=== PATIENT | female | born 1985 | race Caucasian/White ===

== ENCOUNTER 2018-07-03 11:01 | Outpatient (REF) | payer MEDICAID, SELFPAY ==
--- NOTE | 2018-07-03 10:45 | PAPFT_PTH ---
PATIENT: Yenny Benitez LOC: [facility] U#:[id number] AGE/SX: 33/F ROOM: RE07/03/[address]: Serena Yen RN : 1985 BED: DIS: 07/03/2018 SPEC #: [id number] RECD: 07/03/18 12:55 STATUS: SARINA RETamiko #: [id number] MISSY: 07/03/18 10:[address]: Serena Yen DEPT: [facility] Cytology RECD BY: Nina Styles Tissues: 1 - CX/ENDOCX FOR PAP SMEARS Procedures: PAP THIN PREP/UVM Screening HPV DNA PROBE Comments: [id number]
[2018-07-03 12:16] LABS: *AMPHETAMINES SCREEN URINE Negative (Negative); *BARBITURATES SCREEN URINE Negative (Negative); *BENZODIAZEPINES SCREEN URINE Negative (Negative); Cannabinoids THC Negative (Negative); Cocaine Screen,Urine Negative (Negative); METHADONE URINE SCREEN Negative (Negative); OPIATES URINE SCREEN Negative (Negative)
[2018-07-03 12:25] LABS: Tricyclic Antidepressants Negative (Negative)
[2018-07-06 14:53] LABS: Chlamydia Result Negative; GC Result Negative; Specimen Description CERVIX
[2018-07-07 15:02] LABS: Buprenorphine Negative; Norbuprenorphine Negative
== END 2018-07-03 11:21 ==
LOC: LBN 11:01
PROVIDERS: Visit Provider Advanced Practice Midwife
DX: Z34.91 Encounter for supervision of normal pregnancy, unspecified, first trimester (principal); Z11.3 Encounter for screening for infections with a predominantly sexual mode of transmission; Z12.4 Encounter for screening for malignant neoplasm of cervix; Z11.51 Encounter for screening for human papillomavirus (HPV)
CPT/HCPCS: 80307; 87491; 87591; 88142; 87086; 87624

== ENCOUNTER 2018-07-30 14:22 | Outpatient (CLI) | payer MEDICAID, SELFPAY ==
[2018-07-30 15:01] LABS: HCT 34.9 % (36.0-46.0); HGB 12.1 g/dL (12.0-15.5); Mean Corp. HGB Concentration 34.7 g/dL (32.0-36.0); Mean Corpuscular Hemoglobin 30.3 pg (27.0-33.0); Mean Corpuscular Volume 87.3 fL (80-95); Mean Platelet Volume 10.2 fL (8.0-11.0); Platelet Count 210 x1000/uL (130-400); White Blood Cell Count 8.41 k/cumm (4.4-10.8)
[2018-07-31 10:35] LABS: HIV-1/2 Ag & Ab Screen Negative (NEGAT); Hepatitis C Ab w Rflx HCV PCR Negative (NEGAT)
[2018-07-31 10:51] LABS: Hepatitis B Surface Ag Negative (NEGAT)
[2018-07-31 13:40] LABS: Syphilis Serology (RPR) Negative (Negative)
[2018-07-31 14:01] LABS: Rubella IgG Ab (UVM) Positive; Varicella IgG Antibody Positive
== END 2018-07-30 14:42 ==
PROVIDERS: PCP Nurse Practitioner; Visit Provider Advanced Practice Midwife
DX: Z34.91 Encounter for supervision of normal pregnancy, unspecified, first trimester (principal); Z11.4 Encounter for screening for human immunodeficiency virus [HIV]; Z11.59 Encounter for screening for other viral diseases; Z01.84 Encounter for antibody response examination
CPT/HCPCS: 36415; 85027; 86787; 86803; 86850; 86900; 86901; 87340; 87389; 86592; 86762

== ENCOUNTER 2018-09-03 01:23 | Outpatient (CLI) | payer MEDICAID, SELFPAY ==
--- NOTE | 2018-09-03 14:39 | DI.US_ITS ---
SYMPTOMS/DIAGNOSIS: ANATOMY SURVEY, Z34.90 OB ULTRASOUND: Many abnormalities cannot be diagnosed. A normal exam does not exclude a congenital anomaly. Radiology No. [id number] LMP: 04/25/18 Exam Date: 09/03/18 [facility] wks days on EDC ([facility]) 01/30/19 Confirmed: HISTORY: ---- PREDICTED GESTATIONAL AGE NUMBER 18+5 weeks with a range of 17+5 weeks to 19+5 weeks. 1 Determined by___1STUS_X__LMP___HISTORY PLACENTA PRESENTATION Grade 0-I Cephalic_X__ Anterior_X__Posterior___ Breech____ Right Left Transverse(head right___ Fundal___Low-lying___Previa___ Transverse(head left___ Varying BIOMETRY AMNIOTIC FLUID BPD: 43 mm 19 weeks Normal HC: mm 19 weeks AC: mm 18+4 weeks FL: mm 18+4 weeks AMNIOTIC FLUID INDEX >26 WK CRL: mm weeks Cisterna Magna: 4 mm CI: 0.79 RUQ: LUQ Cerebellum: 1.8 cm EFW: grams Percentile RLQ: LLQ Total: cms Composite AGE= 18+6 wks EDC by US: 01/29/19 BIOPHYSICAL PROFILE ANATOMY IDENTIFIED SCORE 0/2 Heart: 4-Chamber_X__Rate:BPM 149 LVOT:___X RVOT:___X Amniotic Fluid(>2cms)____ Stomach:___X____ Kidneys:__X Respirations (>30 secs) Bladder:____X____ Post. Fossa:____X Body Flex/Extension 3-vessel cord:__X Ventricles: X Cord insertion:__X___ Lips:_X___ Extremity Flex/Extension Spinal morphology:__X Nose:__X__ Total Score= Palate:__X NS=not seen COMMENTS: OB ultrasound was performed utilizing second trimester protocol. biometry is consistent wit gestational age of 18 weeks 6 days and an EDC of 01/29/19. Placenta is anterior with no evidence of placenta previa. anomaly screen is within normal limits as per the attached checklist. There is visually a normal quantity of amniotic fluid.
== END 2018-09-03 01:43 ==
PROVIDERS: PCP Nurse Practitioner; Visit Provider Advanced Practice Midwife
DX: Z34.92 Encounter for supervision of normal pregnancy, unspecified, second trimester (principal)
CPT/HCPCS: 76805

== ENCOUNTER 2018-10-27 18:28 | Emergency (ER) | payer MEDICAID, SELFPAY ==
[2018-10-27] VITALS (16 sets, daily range): BP systolic 93–104; BP diastolic 60–76; PULSE 97–122; RESP 12–20; TEMP 36.6–36.8; O2SAT 97–99
--- NOTE | 2018-10-27 18:46 | W.ED.GENAD ---
Discharge Plan Disposition Patient Disposition: HOME Condition: Fair Discharge Details Chief Complaint: RespSymp Clinical Impression: Flu-like symptoms Primary Care Provider: Radha Leigh ED Provider: Farida Cespedes Home Meds and New Rx's Prescriptions: Continued Vitamin tablet 1 tab PO DAILY RF: 0 Discharge Instructions Instructions: Influenza (ED) Additional Instructions: Flu was negative here today, your imaging is reassuring. Encourage hydration. Tylenol as needed for discomfort. Keep follow up . If you develop shortness of breath, difficulty breathing, inability to stay hydrated or other new/worsening symptoms please seek care urgently once again. Referrals: Anusha Frias [[facility] NURSE SURVEY AND MAPPING TECHNICIAN] - Radha Leigh [Primary Care Provider] - Medical Decision Making Patient is a 33 year old female, 27 week gestation, , accompanied by fiance, with c/c of URI and SOB. States that symptoms began 4 days ago with SOB. Since onset, she has develops cough, rhinorrhea, sore throat. Denies new abdominal pain or cramping. Endorses green vaginal discharge but denies new sexual partners, reports she was tested for STDs in first trimester. No itching, foul odor. Normal movement. Denies recent travel, no recent abx. No leg pain or edema. No personal or family history of blood clot. Endorsing low bilateral chest wall discomfort, particularly with cough. On exam, she appears nontoxic, she is tachycardic at 122. Lungs are clear. Calves are soft, nontender. As I am concerned for possible PE with initial symptom of SOB. Will consult with [facility] to discuss imaging. Will also give IV hydration, obtain flu swab and baseline labs. Discussed plan with patient who is in agreement. Influenza negative. HR: 157 Labs reviewed, WBC 14.4, Hgb 11.3. Consulted with judicial registrar. We discussed concern for possible PE, reviewed labs, history, presenting illness. She agreed with concern for possible PE and advised CT for PE study. Also advised EKG which has been added on. Discussed CT with patient and her signficant other in depth. We discussed risks/benefits of the study, she voices understanding and wishes to proceed. CT reviewed by radiologist: FINDINGS: No evidence of pulmonary embolism. Normal thoracic ureter without aneurysm or dissection. No airspace consolidation, pleural effusion or pneumothorax. The visualized abdominal structures are unremarkable. No fracture. IMPRESSION: No evidence of pulmonary embolism. Discussed findings with the patient and her fiance. Advised that her symptoms are most consistent with viral illness at this time. Encouraged hydration. Advised she may use Tylenol for discomfort. She has appointment in [address], she will keep this appointment for reevaluation. She was given strict return precautions, all of her questions and concerns were addressed, she is in agreement with this plan. HPI General Mode of arrival: ambulatory. Date/Time Provider Initiated Documentation: 10/27/18 18:40. Limitations to Documentation: no limitations. Information obtained by: patient and family (significant other). History of Present Illness 33 year old F presents to the emergency department with the chief complaint of URI, SOB, described as moderate, Patient started experiencing this day(s) (4) and it has been constant. No relieving factors improve symptom(s), No exacerbating factors reported . Patient notes chest pain (bilateral lower rib pain, worse with cough), cough and shortness of breath; denies fever/chills, headaches, loss of appetite, nausea/vomiting, rash, syncope and weakness. Patient did receive the following treatments prior to arrival, none Related Data Home Medications Medication Instructions Recorded Confirmed 1 tab PO DAILY 06/11/18 10/01/18 vitamin,calcium,wuejibhy-cngx-vtobs acid tablet Allergies Allergy/AdvReac Type Severity Reaction Status Date / Time No Known Allergies Allergy Verified 10/01/18 15:46 Review of Systems Constitutional Reports as per HPI and Denies headache(s) Eyes Reports as per HPI, Denies eye discharge and Denies irritation ENT Denies change in voice, Denies ear discharge, Denies otalgia, Denies headache(s), Reports nasal congestion, Reports nasal discharge, Reports sore throat, Denies throat swelling and Denies tongue swelling Cardiovascular Reports as per HPI, Denies chest pain and Reports dyspnea Respiratory Reports cough, Denies hemoptysis, Reports pain on inspiration, Reports pain with cough, Reports dyspnea, Denies stridor and Denies wheezing Gastrointestinal Reports as per HPI, Denies abdominal pain, Denies change in bowel habits, Denies cramping, Denies nausea and Denies vomiting Genitourinary Reports vaginal discharge (endorses green discharge since onset of illness) and Reports other (27 week gestation) Integumentary/Breasts Reports as per HPI and Denies rash Neurologic Denies headache(s) Allergic/Immunologic Denies throat swelling, Denies tongue swelling and Denies wheezing PFSH Medical History (Acute) Surgical History Previous section (Chronic) Family History Maternal Grandmother Bone cancer Social History household members: significant other and children number of children: 2 current occupational status: employed current occupation: teacher current occupational exposures/hazards: No Smoking/Tobacco Use Status: Never passive smoking exposure: No Female Reproductive History Menstrual control method: none History History 4 Para 2 Hx # Term Pregnancies 2 Multiple births 0 Hx # Pregnancies 0 Ectopic pregnancies 0 AB induced 1 Hx Number of Living Children 2 AB spontaneous 0 Exam Const General: cooperative, healthy appearing, comfortable, no acute distress, well developed and well groomed Nutritional Appearance: average body habitus and well nourished Orientation: alert and awake [facility] Head: normal to inspection, normocephalic and atraumatic Ears: hearing grossly normal bilaterally, external ears normal and TM's normal bilaterally General nose exam: external nose normal and nares normal Face and sinus: normal facial exam, sinuses nontender and face symmetric Mouth: oral mucosae normal, lip normal, tongue normal, oropharynx normal and moist mucous membranes Teeth and gingiva: dentition normal Throat: posterior oropharynx normal, tonsils normal and uvula midline Eyes General: appearance normal, both eyes and all related structures Neck Neck: normal visual inspection, full ROM, no lymphadenopathy and no meningeal signs Resp Effort & Inspection: normal respiratory effort, able to speak in complete sentences and no respiratory distress Auscultation: clear to auscultation bilaterally, no rales, no rhonchi and no wheezes Cardio Rate: regular rate Rhythm: regular rhythm Heart Sounds: S1 normal and S2 normal GI Inspection: other (consistent with gestational age) Skin General skin exam: no rashes or lesions noted Neuro General: alert and awake Cognition: normal cognition Speech: speech normal Gait: normal gait Extrem General: no pedal edema and no calf tenderness Psych Appearance: grossly normal and well kempt Mental Status: mental status grossly normal Speech and Movement: speech and movement normal
[2018-10-27] MEDS: Normal Saline Flush 10 ML SYR IVP (19:15)
[2018-10-27] MEDS: Normal Saline 1,000 ML 1000 ML IV ×2 (19:15→20:50)
--- NOTE | 2018-10-27 19:20 | ED.GENADUL_ITS ---
Discharge Plan Disposition Patient Disposition: HOME Condition: Fair Discharge Details Chief Complaint: RespSymp Clinical Impression: Flu-like symptoms Primary Care Provider: Radha Leigh ED Provider: Farida Cespedes Home Meds and New Rx's Prescriptions: Continued Vitamin tablet 1 tab PO DAILY RF: 0 Discharge Instructions Instructions: Influenza (ED) Additional Instructions: Flu was negative here today, your imaging is reassuring. Encourage hydration. Tylenol as needed for discomfort. Keep follow up . If you develop shortness of breath, difficulty breathing, inability to stay hydrated or other new/worsening symptoms please seek care urgently once again. Referrals: Anusha Frias [[facility] NURSE STONEWORKER] - Radha Leigh [Primary Care Provider] - Medical Decision Making Patient is a 33 year old female, 27 week gestation, , accompanied by fiance, with c/c of URI and SOB. States that symptoms began 4 days ago with SOB. Since onset, she has develops cough, rhinorrhea, sore throat. Denies new abdominal pain or cramping. Endorses green vaginal discharge but denies new sexual par tners, reports she was tested for STDs in first trimester. No itching, foul odor. Normal movement. Denies recent travel, no recent abx. No leg pain or edema. No personal or family history of blood clot. Endorsing low bilateral chest wall discomfort, particularly with cough. On exam, she appears nontoxic, she is tachycardic at 122. Lungs are clear. Calves are soft, nontender. As I am concerned for possible PE with initial symptom of SOB. Will consult with [facility] to discuss imaging. Will also give IV hydration, obtain flu swab and baseline labs. Discussed plan with patient who is in agreement. Influenza negative. HR: 157 Labs reviewed, WBC 14.4, Hgb 11.3. Consulted with plywood stock grader. We discussed concern for possible PE, reviewed labs, history, presenting illness. She agreed with concern for possible PE and advised CT for PE study. Also advised EKG which has been added on. Discussed CT with patient and her signficant other in depth. We discussed risks/benefits of the study, she voices understanding and wishes to proceed. CT reviewed by radiologist: FINDINGS: No evidence of pulmonary embolism. Normal thoracic ureter without aneurysm or dissection. No airspace consolidation, pleural effusion or pneumothorax. The visualized abdominal structures are unremarkable. No fracture. IMPRESSION: No evidence of pulmonary embolism. Discussed findings with the patient and her fiance. Advised that her symptoms are most consistent with viral illness at this time. Encouraged hydration. Advised she may use Tylenol for discomfort. She has appointment in 2 days with [facility], she will keep this appointment for reevaluation. She was given strict return precautions, all of her questions and concerns were addressed, she is in agreement with this plan. HPI General Mode of arrival: ambulatory . Date/Time Provider Initiated Documentation: 10/27/18 18:40 . Limitations to Documentation: no limitations . Information obtained by: patient and family (significant other) . History of Present Illness 33 year old F presents to the emergency department with the chief complaint of URI, SOB, described as moderate, Patient started experiencing this day(s) (4) and it has been constant. No relieving factors improve symptom(s), No exacerbating factors reported . Patient notes chest pain (bilateral lower rib pain, worse with cough), cough and shortness of breath; denies fever/chills, headaches, loss of appetite, nausea/vomiting, rash, syncope and weakness. Patient did receive the following treatments prior to arrival, none Related Data Home Medications Medication Instructions Recorded Confirmed 1 tab PO DAILY 06/11/18 10/01/18 vitamin,calcium,betiodfx-julz-rsnjt acid tablet Allergies Allergy/AdvReac Type Severity Reaction Status Date / Time No Known Allergies Allergy Verified 10/01/18 15:46 Review of Systems Constitutional Reports as per HPI and Denies headache(s) Eyes Reports as per HPI, Denies eye discharge and Denies irritation ENT Denies change in voice, Denies ear discharge, Denies otalgia, Denies headache(s), Reports nasal congestion, Reports nasal discharge, Reports sore throat, Denies throat swelling and Denies tongue swelling Cardiovascular Reports as per HPI, Denies chest pain and Reports dyspnea Respiratory Reports cough, Denies hemoptysis, Reports pain on inspiration, Reports pain with cough, Reports dyspnea, Denies stridor and Denies wheezing Gastrointestinal Reports as per HPI, Denies abdominal pain, Denies change in bowel habits, Denies cramping, Denies nausea and Denies vomiting Genitourinary Reports vaginal discharge (endorses green discharge since onset of illness) and Reports other (27 week gestation) Integumentary/Breasts Reports as per HPI and Denies rash Neurologic Denies headache(s) Allergic/Immunologic Denies throat swelling, Denies tongue swelling and Denies wheezing PFSH Medical History (Acute) Surgical History Previous section (Chronic) Family History Maternal Grandmother Bone cancer Social History household members: significant other and children number of children: 2 current occupational status: employed current occupation: teacher current occupational exposures/hazards: No Smoking/Tobacco Use Status: Never passive smoking exposure: No Female Reproductive History Menstrual control method: none History History 4 Para 2 Hx # Term Pregnancies 2 Multiple births 0 Hx # Pregnancies 0 Ectopic pregnancies 0 AB induced 1 Hx Number of Living Children 2 AB spontaneous 0 Exam Const General: cooperative, healthy appearing, comfortable, no acute distress, well developed and well groomed Nutritional Appearance: average body habitus and well nourished Orientation: alert and awake [facility] Head: normal to inspection, normocephalic and atraumatic Ears: hearing grossly normal bilaterally, external ears normal and TM's normal bilaterally General nose exam: external nose normal and nares normal Face and sinus: normal facial exam, sinuses nontender and face symmetric Mouth: oral mucosae normal, lip normal, tongue normal, oropharynx normal and moist mucous membranes Teeth and gingiva: dentition normal Throat: posterior oropharynx normal, tonsils normal and uvula midline Eyes General: appearance normal, both eyes and all related structures Neck Neck: normal visual inspection, full ROM, no lymphadenopathy and no meningeal signs Resp Effort & Inspection: normal respiratory effort, able to speak in complete sentences and no respiratory distress Auscultation: clear to auscultation bilaterally, no rales, no rhonchi and no wheezes Cardio Rate: regular rate Rhythm: regular rhythm Heart Sounds: S1 normal and S2 normal GI Inspection: other (consistent with gestational age) Skin General skin exam: no rashes or lesions noted Neuro General: alert and awake Cognition: normal cognition Speech: speech normal Gait: normal gait Extrem General: no pedal edema and no calf tenderness Psych Appearance: grossly normal and well kempt Mental Status: mental status grossly normal Speech and Movement: speech and movement normal
[2018-10-27 19:27] LABS: Abs Immature Grans 0.05 k/cumm (0.0-0.09); Absolute Lymphocyte Count 1.59 k/cumm (1.2-3.4); Basophils % 0.1; Eosinophils % 0.8; HCT 33.4 % (36.0-46.0); HGB 11.3 g/dL (12.0-15.5); Immature Grans % 0.3; Mean Corp. HGB Concentration 33.8 g/dL (32.0-36.0); Mean Corpuscular Hemoglobin 31.1 pg (27.0-33.0); Monocytes % 4.8; Platelet Count 229 x1000/uL (130-400); RBC 3.63 m/cumm (4.00-5.20); RBC Distribution Width 12.5 % (11.7-14.6); White Blood Cell Count 14.45 k/cumm (4.4-10.8)
[2018-10-27 19:32] LABS: Absolute Basophil Count 0.01 k/cumm (0.0-0.2); Absolute Eosinophil Count 0.12 k/cumm (0.0-0.7); Absolute Monocyte Count 0.69 k/cumm (0.11-0.7); Absolute Neutrophil Count 11.99 k/cumm (1.2-6.7)
[2018-10-27 19:34] LABS: ALT 16 U/L (12-78); AST 14 U/L (15-37); Albumin 2.6 g/dL (3.4-5.0); Alkaline Phosphatase 95 U/L (46-116); Anion Gap 5.2 mmol/L (3-11); BUN 8 mg/dL (7-18); Bilirubin, Total 0.2 mg/dL (0.2-1.0); CO2 28.8 mmol/L (21.0-32.0); CREATININE 0.65 mg/dL (0.55-1.02); Calcium 8.2 mg/dL (8.5-10.1); Chloride 103 mmol/L (98-107); Glucose 98 mg/dL (70-100); Potassium 3.4 mmol/L (3.5-5.1); Sodium 137 mmol/L (136-145); Total Protein 6.8 g/dL (6.4-8.2)
--- NOTE | 2018-10-27 19:55 | DI.CT_ITS ---
SYMPTOM/DIAGNOSIS: , SOB, TACHYCARDIA PE CHEST CT: CT angiography was performed with multi slice acquisition and multi planar and 3D reconstruction. The examination was carried out according to the usual protocol with an intravenous administration of 61 cc's of Omnipaque 350. There is no evidence of pulmonary embolic disease. The aorta is normal with no evidence of an aneurysm or dissection. The lungs are free of infiltrate. There is no pneumothorax or pleural effusion. The visualized anatomy in the upper abdomen appears unremarkable. IMPRESSION: No evidence of pulmonary embolic disease.
[2018-10-27] MEDS: Omnipaque 350 MG/ML 100 ML BTL IV (20:20)
--- NOTE | 2018-10-27 20:56 | DI.VRAD_ITS ---
EXAM: CT Angiography Chest With Contrast EXAM DATE/TIME: 10/27/2018 7:55 PM CLINICAL HISTORY: 33 years old, female; Signs and symptoms; Other: , SOB and tachycardic; Patient HX: PT is 27 wks TECHNIQUE: Axial computed tomographic angiography images of the chest with intravenous contrast using CT angiography protocol. All CT scans at this facility use at least one of these dose optimization techniques: automated exposure control; mA and/or kV adjustment per patient size (includes targeted exams where dose is matched to clinical indication); or iterative reconstruction. Coronal and sagittal reformatted images were created and reviewed. MIP reconstructed images were created and reviewed. CONTRAST: 61 ml of OMNIPAQUE 350 administered intravenously. COMPARISON: No relevant prior studies available. FINDINGS: No evidence of pulmonary embolism. Normal thoracic ureter without aneurysm or dissection. No airspace consolidation, pleural effusion or pneumothorax. The visualized abdominal structures are unremarkable. No fracture. IMPRESSION: No evidence of pulmonary embolism. Dictated and Authenticated by: Alvaro Denny MD. Ordering:JOSSE Iqbal MD
== END 2018-10-27 21:57 | disposition home or self-care (01) ==
PROVIDERS: Emergency Provider Physician Assistant; PCP Nurse Practitioner
DX: O99.89 Other specified diseases and conditions complicating pregnancy, childbirth and the puerperium (principal); J11.1 Influenza due to unidentified influenza virus with other respiratory manifestations; Z3A.27 27 weeks gestation of pregnancy
CPT/HCPCS: 36415; 71275; 80053; 87449; 93005; 96360; 96361; 99285; 85025; 93010; J3490

== ENCOUNTER 2018-11-12 02:19 | Outpatient (CLI) | payer MEDICAID, SELFPAY ==
[2018-11-12 12:49] LABS: HCT 31.4 % (36.0-46.0); HGB 10.3 g/dL (12.0-15.5); Mean Corp. HGB Concentration 32.8 g/dL (32.0-36.0); Mean Corpuscular Volume 91.5 fL (80-95); Platelet Count 246 x1000/uL (130-400); RBC 3.43 m/cumm (4.00-5.20); RBC Distribution Width 12.2 % (11.7-14.6); White Blood Cell Count 9.02 k/cumm (4.4-10.8)
[2018-11-12 12:52] LABS: Glucose,1 Hr (Glucola) 93 mg/dL (80-140)
[2018-11-12 13:42] LABS: TSH (W/Ref FT4) 1.13 uIU/mL (0.358-3.74)
== END 2018-11-12 02:39 ==
PROVIDERS: Advanced Practice Midwife; PCP Nurse Practitioner; Visit Provider Obstetrics & Gynecology Gynecology
DX: O26.893 Other specified pregnancy related conditions, third trimester (principal); Z34.93 Encounter for supervision of normal pregnancy, unspecified, third trimester; Z67.91 Unspecified blood type, Rh negative; Z01.84 Encounter for antibody response examination
CPT/HCPCS: 36415; 82950; 85027; 86850; 86900; 86901; 90384; 84443

== ENCOUNTER 2018-12-31 14:18 | Outpatient (REF) | payer MEDICAID, SELFPAY | END 2018-12-31 14:38 | LOC: LBN 14:18 | PROVIDERS: PCP Nurse Practitioner; Visit Provider Obstetrics & Gynecology | DX: Z34.93 Encounter for supervision of normal pregnancy, unspecified, third trimester (principal); Z36.85 Encounter for antenatal screening for Streptococcus B | CPT/HCPCS: 87081 ==

== ENCOUNTER 2019-01-02 12:51 | Emergency (ER) | payer MEDICAID, SELFPAY ==
--- NOTE | 2019-01-02 13:01 | NUTRITION ---
pt has been spending time with individuals who had the flu and strep. the morning pt woke up with body akes and a sore throat and came to the Er because she is and concerned about randi influenza or strep while . pt is 36 weeks
[2019-01-02 13:03] VITALS: BP 112/74; PULSE 104; RESP 18; TEMP 37.1; O2SAT 99
--- NOTE | 2019-01-02 14:08 | W.ED.GENAD ---
Discharge Plan Disposition Patient Disposition: HOME Condition: Stable Discharge Details Chief Complaint: Sorethroat Clinical Impression: URI (upper respiratory infection), Viral syndrome Primary Care Provider: Radha Leigh ED Provider: Miriam Cote Home Meds and New Rx's Prescriptions: Continued Vitamin tablet 1 tab PO DAILY RF: 0 ferrous sulfate 134 mg (27 mg iron) tablet 134 mg PO DAILY RF: 0 lidocaine HCl 3 % cream 1 applic TP QID PRN (Reason: pain) Qty: 85 RF: 1 Discharge Instructions Instructions: Upper Respiratory Infection (ED), Viral Syndrome (ED) Additional Instructions: Drink plenty fluids get plenty of rest. Continue to take Tylenol and use your saline nose spray as needed and directed. Follow-up with your [facility] next week for reevaluation. Return immediately to the emergency department any worsening or new concerning symptoms. Discharge Data Discharge Physician: Miriam Cote Medical Decision Making 33-year-old female who is 36 weeks with estimated due date of January 27 who presents with body aches, chills, nasal congestion, postnasal drip and sore throat since yesterday. Patient states she is mainly here to have a rapid strep and influenza test to make sure she does not have the flu or strep as she had positive sick contacts with both recently. Vitals within normal limits. Patient is afebrile and appears nontoxic. Normal ENT exam. Lungs clear to auscultation. Rapid strep and rapid influenza negative. Patient declined any Tylenol here. She feels good to go home. She is instructed to follow-up with OB for reevaluation and return at any time if worse. HPI General Mode of arrival: ambulatory. Date/Time Provider Initiated Documentation: 01/02/19 13:37. Limitations to Documentation: no limitations. Information obtained by: patient. HPI Narrative: Patient is a 33-year-old female who is 36 weeks with an estimated due date of January 27 who presents with body ache and chills with nasal congestion and sore throat since last night. Patient admits to multiple sick contacts with influenza and strep throat recently. She denies any known fever, coughing, vomiting, diarrhea, shortness of breath, chest pain or abdominal pain. She states she is feeling the baby kick and move and denies any vaginal bleeding. She states she took Tylenol at 530 this morning. She does admit to intermittent postnasal drip and minimal headache in the back of her head but denies any neck pain. Related Data Home Medications Medication Instructions Recorded Confirmed 1 tab PO DAILY 06/11/18 01/02/19 vitamin,calcium,jmmgjdfr-stdp-nnwfo acid tablet ferrous sulfate 134 mg (27 mg 134 mg PO DAILY tab 12/17/18 12/31/18 iron) tablet lidocaine HCl 3 % topical cream 1 applic TP QID PRN #85 gm 12/17/18 12/31/18 Previous Rx's Medication Instructions Recorded lidocaine HCl 3 % topical cream 1 applic TP QID PRN #85 gm 12/17/18 Allergies Allergy/AdvReac Type Severity Reaction Status Date / Time No Known Allergies Allergy Verified 01/02/19 13:05 General Stated Complaint: Sorethroat BLAYNE: 4 Review of Systems Review of Systems All systems reviewed & are unremarkable except as noted in HPI and below Constitutional Reports as per HPI, Denies chills and Denies fever(s) Eyes Denies blurry vision ENT Denies dizziness, Denies sore throat and Denies throat swelling Cardiovascular Denies chest pain and Denies dyspnea Respiratory Denies cough and Denies dyspnea Gastrointestinal Denies abdominal pain, Denies diarrhea and Denies vomiting Genitourinary Denies hematuria and Denies dysuria Musculoskeletal Denies back pain and Denies numbness Integumentary/Breasts Denies lesions and Denies rash Neurologic Denies dizziness, Denies focal weakness and Denies numbness Allergic/Immunologic Denies throat swelling [facility] Medical History (Acute) Surgical History Previous section (Chronic) Family History Maternal Grandmother Bone cancer Father Heart disease Social History Smoking/Tobacco Use Status: Never Alcohol Intake: never Drug use: Never Household members: significant other and children Number of Children: 2 current occupation: teacher Do you feel safe at home: Yes Do you feel safe in your relationship?: Yes Additional Social history: Partner - Elliott. 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 Female Reproductive History Menstrual control method: none History History 4 Para 2 Hx # Term Pregnancies 2 Multiple births 0 Hx # Pregnancies 0 Ectopic pregnancies 0 AB induced 1 Hx Number of Living Children 2 AB spontaneous 0 Past Pregnancies Del. Date GA/Weeks # Outcome Route Wgt Sex Labor Lgth Anesthesia Location Prov Complic 05/24/12 40 Successful 3.856 kg Male 18 hrs regional 05/06/13 Unsuccessful 12/28/14 Successful 4.026 kg Male regional Delivery Date: 12/28/14 On 07/30/18 @ 14:13 Anusha Frias [place]: Spontaneous labor and was 6 cm but had planned repeat C/S. Delivery Date: 05/06/13 On 07/30/18 @ 13:42 Anusha Frias early elective TAB, Delivery Date: 05/24/12 On 07/30/18 @ 13:39 Anusha Frias [place]; emergency C/S for distress in 2nd stage Exam Const General: cooperative and healthy appearing Orientation: alert and awake HENNJ Head: normal to inspection Ears: hearing grossly normal bilaterally, external ears normal and TM's normal bilaterally General nose exam: external nose normal Face and sinus: normal facial exam Mouth: oral mucosae normal Teeth and gingiva: dentition normal Throat: posterior oropharynx normal Eyes General: appearance normal, both eyes and all related structures Eyelids: eyelids normal Pupils: PERRL EOM: EOM intact bilaterally Neck Neck: normal visual inspection Lymphatic: no lymphadenopathy noted Chest Chest: normal inspection of the chest Resp Effort & Inspection: normal respiratory effort and able to speak in complete sentences Auscultation: clear to auscultation bilaterally Cardio Rate: regular rate Rhythm: regular rhythm GI Inspection: normal to inspection and other (Gravid uterus) Palpation: soft, not firm, no guarding, no hepatosplenomegaly, no masses and nontender Auscultation: normal bowel sounds Skin General skin exam: no rashes or lesions noted Neuro General: alert and awake Cognition: normal cognition Speech: speech normal Gait: normal gait Motor: muscle tone normal throughout Sensory Exam: no sensory deficits noted Extrem General: normal to inspection, full ROM and normal capillary refill Psych Appearance: grossly normal Mental Status: mental status grossly normal Speech and Movement: speech and movement normal Affect: normal affect Thought Process: normal Course Vital Signs Temperature 98.8 F 01/02/19 13:03 Pulse 104 H 01/02/19 13:03 Respiratory Rate 18 01/02/19 13:03 Blood Pressure 112/74 01/02/19 13:03 Pulse Oximetry 99 01/02/19 13:03 Temperature 98.8 F 01/02/19 13:03 Temperature Source Skin 01/02/19 13:03 Pulse 104 H 01/02/19 13:03 Respiratory Rate 18 01/02/19 13:03 Respiratory Effort 01/02/19 13:05 Blood Pressure 112/74 01/02/19 13:03 Blood Pressure Position Sitting 01/02/19 13:03 Pulse Oximetry 99 01/02/19 13:03 Oxygen Delivery Method Room Air 01/02/19 13:03 Oxygen Flow Rate 0 01/02/19 13:03 Pain Level 0 01/02/19 13:03 Lab/Test Results Lab/Test Results: 01/02/19 13:39 Nasopharynx Influenza Types A,B Antigen - Final 01/02/19 13:31 Tonsil - Not Specified Streptococcus Screen (SALOME) - Pending POC Strep Test-EVELINE(Rapid) Start: 01/02/19 13:41 Freq: Status: Active Protocol: Document 01/02/19 13:41 TB (Rec: 01/02/19 13:41 TB [id number]) Strep test-EVELINE(Rapid)-POC POC-Strep test-EVELINE (Rapid) Negative POC-Strep test-EVELINE (Rapid) Negative
[2019-01-02 15:05] VITALS: BP 112/74; PULSE 90; RESP 16; TEMP 37; O2SAT 99
== END 2019-01-02 15:40 | disposition home or self-care (01) ==
PROVIDERS: Emergency Provider Physician Assistant; PCP Nurse Practitioner
DX: J06.9 Acute upper respiratory infection, unspecified (principal); B34.9 Viral infection, unspecified
CPT/HCPCS: 87449; 87880; 99282; 87081

== ENCOUNTER 2019-01-17 19:15 | Inpatient (IN) | payer MEDICAID, SELFPAY ==
--- NOTE | 2019-01-17 20:03 | HPE_ITS ---
Date of service: 01/17/19 Time of Service: 19:50 Assessment and Plan (1) Previous delivery affecting : Current visit: Yes Status: Acute Patient consents for a repeat unscheduled low transverse delivery. She has been counseled regarding the risk of infection damage to surrounding structures including bowel bladder ureters the possibility of injury to use at the time of delivery. She requests permanent sterilization she is aware that this will render her incapable of having future pregnancies. She has been counseled during her regarding her desire for sterilization and her options for alternatives including LARC. She wishes to proceed. Informed consent was obtained and her questions were answered. (2) Request for sterilization: Current visit: Yes Status: Acute History of Present Illness Chief Complaint: Contractions Past OB history Narrative: Patient is a 33-year-old female with an EDC of 01/30/2019 who began to experience painful regular contractions this evening. No complaints of rupture membranes no vaginal bleeding. On presentation to the center she is 2 cm dilated 50% effaced -1 station with regular contractions mild variable decelerations with a of the heart rate. Patient was scheduled for a repeat delivery with bilateral tubal sterilization in approximately 2 weeks. Plan at this time is to proceed with the urgent delivery this evening. OB History Presented for care in first trimester. She has had a total of 11 visits. Sizeequal to dates. Normal morphology ultrasound. First trimester blood pressure 110/72 third trimester blood pressure 104/70. Total weight gain 22 pounds. Her only issue this was a sensation of pain in her left upper quadrant she described it as a tearing sensation OB labs O-. Antibody negative. Patient received RhoGam during her . Negative STI, HIV, rubella immune, hepatitis B surface antigen negative, GBS rectovaginal culture negative. Review of Systems Constitutional Reports as per HPI Cardiovascular Reports system reviewed and no additional complaints, except as docu Gastrointestinal Reports as per HPI (Patient had strawberries several hours ago) Musculoskeletal Reports system reviewed and no additional complaints, except as docu [facility] Medical History (Acute) Surgical History Previous section (Chronic) Family History Maternal Grandmother Bone cancer Father Heart disease Social History Smoking/Tobacco Use Status: Never Alcohol Intake: never Drug use: Never Household members: significant other and children Number of Children: 2 current occupation: teacher Do you feel safe at home: Yes Do you feel safe in your relationship?: Yes Additional Social history: Partner - Elliott. 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 Female Reproductive History Menstrual control method: none History History 4 Para 2 Hx # Term Pregnancies 2 Multiple births 0 Hx # Pregnancies 0 Ectopic pregnancies 0 AB induced 1 Hx Number of Living Children 2 AB spontaneous 0 Past Pregnancies Del. Date GA/Weeks # Outcome Route Wgt Sex Labor Lgth Anesthesia Location Prov Complic 05/24/12 40 Successful 8 lb 8 oz Male 18 hrs regional 05/06/13 Unsuccessful 12/28/14 Successful 8 lb 14 oz Male regional Delivery Date: 12/28/14 On 07/30/18 @ 14:13 Anusha Frias [place]: Spontaneous labor and was 6 cm but had planned repeat C/S. Delivery Date: 05/06/13 On 07/30/18 @ 13:42 Anusha Frias early elective TAB, Delivery Date: 05/24/12 On 07/30/18 @ 13:39 Anusha Frias [place]; emergency C/S for distress in 2nd stage Meds Home Medications Medication Instructions Recorded Confirmed Type 1 tab PO DAILY 06/11/18 01/11/19 History vitamin,calcium,meyhmrav-foyw-arbet acid tablet ferrous sulfate 134 mg (27 mg 134 mg PO DAILY tab 12/17/18 01/11/19 History iron) tablet lidocaine HCl 3 % topical cream 1 applic TP QID PRN #85 gm 12/17/18 01/11/19 Rx Allergies Allergy/AdvReac Type Severity Reaction Status Date / Time No Known Allergies Allergy Verified 01/11/19 15:31 Exam Const General: cooperative and comfortable Nutritional Appearance: average body habitus Orientation: awake Resp Effort & Inspection: normal respiratory effort Auscultation: clear to auscultation bilaterally Cardio Palpation: normal PMI Rate: regular rate Rhythm: regular rhythm Heart Sounds: S1 normal and S2 normal GI Inspection: normal to inspection (Gravid no focal upper quadrant pain noted.) Palpation: soft and no hepatosplenomegaly (No guarding rebound or masses) External Female Exam: external appearance normal Manual OB Exam: dilated 2, effaced 50% and station -1 Skin General skin exam: no rashes or lesions noted Neuro DTR's: Rt Patellar: 1+, Lt Patellar: 1+, Rt Ankle: 1+ and Lt Ankle: 1+ Extrem General: normal to inspection, full ROM and normal capillary refill Results Labs : 01/17/19 19:43
[2019-01-17 20:23] LABS: HGB 12.1 g/dL (12.0-15.5); Mean Corp. HGB Concentration 33.6 g/dL (32.0-36.0); Mean Corpuscular Hemoglobin 30.6 pg (27.0-33.0); Mean Corpuscular Volume 90.9 fL (80-95); Mean Platelet Volume 10.7 fL (8.0-11.0); Platelet Count 212 x1000/uL (130-400); RBC 3.96 m/cumm (4.00-5.20); RBC Distribution Width 12.4 % (11.7-14.6); White Blood Cell Count 8.67 k/cumm (4.4-10.8)
[2019-01-17] MEDS: Sodium Citrate 30 ML CUP PO (20:32)
[2019-01-17] MEDS: AZITHROMYCIN 500 MG in Normal Saline 250 ML 250 MG IVPB (20:35)
[2019-01-17] MEDS: Lactated Ringers 1,000 ML 200 ML IV (20:35)
[2019-01-17] MEDS: ceFAZolin 2,000 MG in Normal Saline 100 ML 200 MG IVPB (21:06)
--- NOTE | 2019-01-17 21:33 | FALL_PTH ---
PATIENT: Yenny Benitez LOC: OBS U#:[id number] AGE/SX: 33/F ROOM: OBS.305 RE01/17/[address]: Day Aguirre : 1985 BED: A DIS: 01/20/2019 SPEC #: [id number] RECD: 01/18/19 12:38 STATUS: SARINA RETamiko #: [id number] MISSY: 01/17/19 21:[address]: Day Aguirre DEPT: Surgical Specimen RECD BY: Nina Styles ENTERED: 01/18/19 12:38 SP TYPE: Fall OTHR DR: Radha Leigh Tissues: 1 - FALLOPIAN TUBE (STERILIZATION) 2 - FALLOPIAN TUBE (STERILIZATION) Procedures: GROSS AND MICRO LEVEL 2 Comments: [id number]
[2019-01-18] MEDS: Ketorolac 30 MG/ML VIAL IVP ×3 (03:57→16:11)
[2019-01-18] MEDS: Lactated Ringers 1,000 ML 200 ML IV (05:44)
[2019-01-18] MEDS: Acetaminophen 325 MG TAB 650 MG PO ×2 (07:57→12:52)
[2019-01-18 09:44] LABS: HCT 31.1 % (36.0-46.0); HGB 10.1 g/dL (12.0-15.5); Mean Corp. HGB Concentration 32.5 g/dL (32.0-36.0); Mean Corpuscular Volume 92.3 fL (80-95); Platelet Count 172 x1000/uL (130-400); RBC 3.37 m/cumm (4.00-5.20); RBC Distribution Width 12.6 % (11.7-14.6); White Blood Cell Count 12.49 k/cumm (4.4-10.8)
[2019-01-18] MEDS: Lactated Ringers 1,000 ML 125 ML IV (11:00)
[2019-01-18] MEDS: Normal Saline Flush 10 ML SYR IVP ×2 (11:23→16:10)
[2019-01-18] MEDS: oxyCODONE 5 mg/Acetaminophen 325 mg TAB PO ×3 (18:17→22:43)
[2019-01-18] MEDS: Docusate Sodium 100 MG CAP PO (21:10)
[2019-01-18] MEDS: Ibuprofen 600 MG TAB PO (22:03)
[2019-01-19] MEDS: Docusate Sodium 100 MG CAP PO ×2 (02:36→10:40)
[2019-01-19] MEDS: oxyCODONE 5 mg/Acetaminophen 325 mg TAB PO ×5 (02:36→19:54)
[2019-01-19] MEDS: Ibuprofen 600 MG TAB (03:39)
[2019-01-19] MEDS: Ibuprofen 600 MG TAB PO ×2 (12:58→18:36)
[2019-01-20] MEDS: oxyCODONE 5 mg/Acetaminophen 325 mg TAB PO ×4 (00:03→12:30)
[2019-01-20] MEDS: Ibuprofen 600 MG TAB PO ×2 (02:56→11:23)
--- NOTE | 2019-01-20 09:03 | ROE_ITS ---
Date of service: 01/17/19 Time of Service: 20:00 Operative Note DATE OF PROCEDURE: 01/17/19 PRE-OP DIAGNOSIS: Intrauterine at term. Previous delivery PROCEDURE: Nonselective unscheduled repeat delivery with bilateral salpingectomy SURGEON: Day Aguirre EHR TRAINER: Tavo Ramos ANESTHESIA: spinal (Carlito Isidro CRNA) ESTIMATED BLOOD LOSS: 300 PATHOLOGY: other (Left and right fallopian tubes to pathology) COMPLICATIONS: None Patient was transported to: floor (Via gurney) Patient's condition: stable Indications: Patient is a 33-year-old female with an EDC of 01/30/2019 who began to experience painful regular contractions this evening. No complaints of rupture membranes no vaginal bleeding. On presentation to the center she is 2 cm dilated 50% effaced -1 station with regular contractions mild variable decelerations with a of the heart rate. Findings: Viable female in OA position with clear amniotic fluid. Weight 3125 g (8 pounds 14 ounces) Apgars 8 at 1 minute 9 at 5 minutes. Band of adhesions extending from the fundus to the lower uterine segment and onto the cervix. Otherwise normal fallopian tubes ovaries. Palpation of the upper abdomen was normal bladder flap normal Procedure Description: Patient was taken to the operating room where she was placed in the sitting position and spinal anesthesia was administered without difficulty. She was then placed in the dorsal supine position with a leftward tilt. Corey catheter was placed to gravity drainage she had a dose of 2 g of Ancef and a completion of 500 mg of IV erythromycin prior to skin incision. She was prepped and draped in usual sterile fashion. A timeout was performed. After a satisfactory level anesthesia had been obtained a scalpel was used to incise along the previous scar using a scalpel the underlying subcutaneous tissue was dissected using Bovie electrocautery. Upon encountering the rectus fascia the rectus fascia was nicked in the midline with scissors and the incision was extended laterally with curved Borjas scissors and blunt technique. The rectus muscles were in the midline and the peritoneum entered bluntly well above the vesicouterine fold. Bladder blade was placed and the bladder was retracted away from the operative field the vesicouterine fold was tented up and incised and this dissected off of the lower uterine segment using blunt technique. The bladder blade was then reinserted to retract the bladder away from the operative field the scalpel was used to incise the lower uterine segment in a transverse fashion upon entry into the uterus the uterine incision was extended bluntly and the amniotic sac ruptured with clear amniotic fluid returned. A single gloved hand placed into the uterus was used to grasp the head she was not well applied to the lower uterine segment. As result we required the application of a Kiwi cup and the head was delivered atraumatically with the assistance of traction from the Kiwi cup in the fundal pressure. Cord was doubly clamped and cut was handed off to waiting pediatric team. Cord bloods were collected and the uterus was delivered intact with assistance of fundal massage and gentle cord traction. The fibrous band of tissue from the left uterine fundus to the lower uterine segment was cauterized in 2 contiguous locations and transected with the Bovie electrocautery. Uterus was exteriorized, cleared of all clots, and debris's and the uterine incision was reapproximated with a running lock suture of 0 Vicryl followed by second imbricating suture of 0 Vicryl. Bleeding at the right lateral margin was noted and treated with a interrupted suture of 0 Vicryl. The uterine incision hemostatic attention was turned to the patient's left fallopian tube which was grasped and followed out to its fimbriated end. A LigaSure electrocautery device was used to clamp cauterize and transect the left fallopian tube along the mesosalpinx to the level of the uterine cornua. The specimen was passed off of the operative field and the left pedicle was noted to be hemostatic. A similar technique was carried on the patient's right fallopian tube. Both pedicles were noted to be hemostatic at the completion of the salpingectomies. The uterus was then returned to the abdomen the paracolic gutters cleared of all clots and debris's and the uterine incision and the salpingectomy pedicles were inspected and noted be hemostatic. The anterior abdomen wall and bladder flap were inspected and noted be hemostatic. I attempted to reapproximate the peritoneum but the patient had experienced nausea vomiting and with Valsalva the small intestine was coming into the site of the peritoneal closure. I stopped the peritoneal closure removed the previously placed peritoneal sutures and attention was turned to the rectus fascia. The rectus fascia was closed with 0 Vicryl suture extending from the lateral margins and overlapping in the midline. The subcutaneous tissue was copiously irrigated with sterile saline. Reapproximated to decrease space using a running suture of 2-0 Vicryl. The skin was closed with a subcuticular suture of 4-0 Vicryl. Skin glue was applied to the incision. The uterus was then massaged for any remaining clots and debris's. Patient was then transferred to [facility] and transported to recovery area in stable condition all sponge lap needle counts were correct x2.
--- NOTE | 2019-01-20 12:55 | W.PM.DS.N ---
Date of service: 01/20/19 Time of Service: 12:55 DS: Diagnosis Discharge Diagnosis (1) Previous delivery affecting : Status: Acute (2) Request for sterilization: Status: Acute Discharge Plan Disposition Patient Disposition: HOME Condition: Good Discharge Details Reason For Visit: TERM . REPEAT C/S Admit Date/Time: 01/17/19 19:43 Admit Provider: Day Aguirre Attending Provider: Day Augirre Primary Care Provider: Radha Leigh Hospital Course Hospital Course: Admitted in early active labor patient underwent a unscheduled repeat delivery with bilateral salpingectomy on 01/17/2019. course was uncomplicated she was discharged home on postop day #3 successfully breast-feeding pain controlled with Percocet and NSAIDs Home Meds and New Rx's Prescriptions: No Action Vitamin tablet 1 tab PO DAILY RF: 0 ferrous sulfate 134 mg (27 mg iron) tablet 134 mg PO DAILY RF: 0 lidocaine HCl 3 % cream 1 applic TP QID PRN (Reason: pain) Qty: 85 RF: 1 Discharge Instructions Stand Alone Forms: BC Instructions, BC Discharge Instruc Activity:: Activity as Tolerated Equipment/Supplies:: No Equipment Needed Diet:: As Tolerated Discharge Orders Discharge Orders: Discharge Order (Routine); Ordered 01/20/19 Ordered By: Day Aguirre Exam Narrative Exam Narrative: Discharged home successfully breast-feeding. The plan is to see the patient in 6 weeks for follow-up or earlier as needed. Prescription for Percocet will be given to the patient and Motrin will be E faxed. Const General: cooperative and no acute distress Nutritional Appearance: average body habitus Orientation: alert, awake and oriented x3 Resp Effort & Inspection: normal respiratory effort Cardio Rate: regular rate Rhythm: regular rhythm GI Inspection: incision (Clean dry and intact) Palpation: soft and hepatosplenomegaly Skin General skin exam: no rashes or lesions noted Extrem General: normal to inspection and normal capillary refill DS: Data Vitals/I&O Vitals and I&O: Vital Signs Pain Level 3 01/20/19 12:30 Intake & Output 01/19/19 01/20/19 01/20/19 23:59 11:59 23:59 Intake Total 1081 / 1081 Balance 1081 / 1081 Intake: IV 1081 / 1081 [facility] Medical History (Acute) Surgical History Previous section (Chronic) Family History Maternal Grandmother Bone cancer Father Heart disease Social History Smoking/Tobacco Use Status: Never Alcohol Intake: never Drug use: Never Household members: significant other and children Number of Children: 3 current occupation: teacher Do you feel safe at home: Yes Do you feel safe in your relationship?: Yes Additional Social history: Partner - Elliott. 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 RC/S with bilateral salpingectomy. [place] Female Reproductive History Menstrual control method: none History History 4 Para 2 Hx # Term Pregnancies 2 Multiple births 0 Hx # Pregnancies 0 Ectopic pregnancies 0 AB induced 1 Hx Number of Living Children 2 AB spontaneous 0 Past Pregnancies Del. Date GA/Weeks # Outcome Route Wgt Sex Labor Lgth Anesthesia Location [facility] 05/24/12 40 Successful 8 lb 8 oz Male 18 hrs regional 05/06/13 Unsuccessful 12/28/14 Successful 8 lb 14 oz Male regional 01/17/19 38 No Successful 6 lb 1 oz Female Delivery Date: 01/17/19 No notes to display Delivery Date: 12/28/14 On 07/30/18 @ 14:13 Anusha Frias [place]: Spontaneous labor and was 6 cm but had planned repeat C/S. Delivery Date: 05/06/13 On 07/30/18 @ 13:42 Anusha Frias early elective TAB, Delivery Date: 05/24/12 On 07/30/18 @ 13:39 Anusha Frias [place]; emergency C/S for distress in 2nd stage
--- NOTE | 2019-01-20 13:01 | DSE_ITS ---
Date of service: 01/20/19 Time of Service: 12:55 DS: Diagnosis Discharge Diagnosis (1) Previous delivery affecting : Status: Acute (2) Request for sterilization: Status: Acute Discharge Plan Disposition Patient Disposition: HOME Condition: Good Discharge Details Reason For Visit: TERM . REPEAT C/S Admit Date/Time: 01/17/19 19:43 Admit Provider: Day Aguirre Attending Provider: Day Aguirre Primary Care Provider: Radha Leigh Hospital Course Hospital Course: Admitted in early active labor patient underwent a unscheduled repeat delivery with bilateral salpingectomy on 01/17/2019. course was uncomplicated she was discharged home on postop day #3 successfully breast- feeding pain controlled with Percocet and NSAIDs Home Meds and New Rx's Prescriptions: No Action Vitamin tablet 1 tab PO DAILY RF: 0 ferrous sulfate 134 mg (27 mg iron) tablet 134 mg PO DAILY RF: 0 lidocaine HCl 3 % cream 1 applic TP QID PRN (Reason: pain) Qty: 85 RF: 1 Discharge Instructions Stand Alone Forms: BC Instructions, BC Discharge Instruc Activity:: Activity as Tolerated Equipment/Supplies:: No Equipment Needed Diet:: As Tolerated Discharge Orders Discharge Orders: Discharge Order (Routine); Ordered 01/20/19 Ordered By: Day Aguirre Exam Narrative Exam Narrative: Discharged home successfully breast-feeding. The plan is to see the patient in 6 weeks for follow-up or earlier as needed. Prescription for Percocet will be given to the patient and Motrin will be E faxed. Const General: cooperative and no acute distress Nutritional Appearance: average body habitus Orientation: alert, awake and oriented x3 Resp Effort & Inspection: normal respiratory effort Cardio Rate: regular rate Rhythm: regular rhythm GI Inspection: incision (Clean dry and intact) Palpation: soft and hepatosplenomegaly Skin General skin exam: no rashes or lesions noted Extrem General: normal to inspection and normal capillary refill DS: Data Vitals/I&O Vitals and I&O: Vital Signs Pain Level 3 01/20/19 12:30 Intake & Output 01/19/19 01/20/19 01/20/19 23:59 11:59 23:59 Intake Total 1081 / 1081 Balance 1081 / 1081 Intake: IV 1081 / 1081 [facility] Medical History (Acute) Surgical History Previous section (Chronic) Family History Maternal Grandmother Bone cancer Father Heart disease Social History Smoking/Tobacco Use Status: Never Alcohol Intake: never Drug use: Never Household members: significant other and children Number of Children: 3 current occupation: teacher Do you feel safe at home: Yes Do you feel safe in your relationship?: Yes Additional Social history: Partner - Elliott. 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 RC/S with bilateral salpingectomy. [place] Female Reproductive History Menstrual control method: none History History 4 Para 2 Hx # Term Pregnancies 2 Multiple births 0 Hx # Pregnancies 0 Ectopic pregnancies 0 AB induced 1 Hx Number of Living Children 2 AB spontaneous 0 Past Pregnancies Del. Date GA/Weeks # Outcome Route Wgt Sex Labor Lgth Anesthesia Location [facility] 05/24/12 40 Successful 8 lb 8 oz Male 18 hrs regional 05/06/13 Unsuccessful 12/28/14 Successful 8 lb 14 oz Male regional 01/17/19 38 No Successful 6 lb 1 oz Female Delivery Date: 01/17/19 No notes to display Delivery Date: 12/28/14 On 07/30/18 @ 14:13 Anusha Frias [place]: Spontaneous labor and was 6 cm but had planned repeat C/S. Delivery Date: 05/06/13 On 07/30/18 @ 13:42 Anusha Frias early elective TAB, Delivery Date: 05/24/12 On 07/30/18 @ 13:39 Anusha Frias [place]; emergency C/S for distress in 2nd stage
== END 2019-01-20 14:25 | disposition home or self-care (01) | DRG 785 ==
PROVIDERS: Admitting Provider Obstetrics & Gynecology Gynecology; PCP Nurse Practitioner; Visit Provider Obstetrics & Gynecology Gynecology
PROC: 10D00Z1 Extraction of Products of Conception, Low, Open Approach (ICD-10-PCS; CPT 59514; principal; 2019-01-17 20:20)
DX: O75.82 Onset (spontaneous) of labor after 37 completed weeks of gestation but before 39 completed weeks gestation, with delivery by (planned) cesarean section (principal); Z37.0 Single live birth; Z3A.38 38 weeks gestation of pregnancy; Z30.2 Encounter for sterilization; O34.211 Maternal care for low transverse scar from previous cesarean delivery
CPT/HCPCS: 59514; 58611; 36415; 85027; 86850; 86900; 86901; 99221; NC; 86870; 88302; G0378; J0456; J0690; J1885; J2370; J2405; J2590; J3490

== ENCOUNTER 2019-06-07 19:38 | Inpatient (IN) | payer MEDICAID, SELFPAY ==
[2019-06-07 19:41] VITALS: BP 130/80; PULSE 87; RESP 18; TEMP 36.5; O2SAT 100
--- NOTE | 2019-06-07 19:52 | ED.GENADUL_ITS ---
Discharge Plan Disposition Patient Disposition: [facility] INPATIENT Condition: Stable Discharge Details Chief Complaint: Abd Prob Clinical Impression: Acute cholecystitis due to biliary calculus Admit Date/Time: 06/07/19 21:25 Admit Provider: Angelika Grover Attending Provider: Angelika Grover Primary Care Provider: Radha Leigh ED Provider: Farida Cespedes Medical Decision Making Patient is a 33-year-old female presenting today with chief complaint of right upper quadrant pain. She reports that pain began proximal 2 hours ago. She reports the pain initially began quite mild. She reports that she thought she was having some stomach upset and took some Tums. Despite this intervention, pain persisted. She then ate a small amount of [place] food and is immediately after that the pain became very severe. Is endorsing multiple episodes of vomiting. Is endorsing nausea. States the pain is primarily in the right upper quadrant can radiate around to the back. No alcohol intake. Patient did have a section in January of this year. She reports that time, she also had a tubal ligation. She denies any fevers or chills. Does not have pain like this historically, no previous pain in the right upper quadrant. Denies any previous postprandial food. On exam, patient appears uncomfortable. She is bending forward holding her abdomen. Emesis bag. On exam, lungs are clear, normal cardiac exam. No CVA tenderness. She is exquisitely tender in the right upper quadrant with positive Chaney sign. Palpable round object consistent with a gallbladder is palpable in the right upper quadrant. Plan for CT, laboratory evaluation. Will give morphine and Zofran for symptomatic management. Contacted by radiologist. They reviewed the CT and advised that her findings are consistent with cholecystitis. They advised very significant intrahepatic duct dilation and stones in the gallbladder with pericholecystic fluid and gallstones Discussed findings with the patient. I also evaluated her with ultrasound in the gallbladder wall is noted as well as stones. Patient has a positive sonographic Chaney's. She feels that the nausea and pain is much improved with 2 mg of morphine and 4 mg of Zofran Consulted with general surgeon who advised admission. She will place admission orders to include antibiotic orders. She reports patient will be going to operating room likely tomorrow for cholecystectomy. Patient I discussed admission status. She agrees to the noted plan. HPI General Mode of arrival: ambulatory . Date/Time Provider Initiated Documentation: 06/07/19 19:50 . Limitations to Documentation: no limitations . Information obtained by: patient, family and RN notes reviewed . History of Present Illness 33 year old F presents to the emergency department with the chief complaint of RUQ abdominal pain, described as severe, with intensity rated at 9. Quality is described as stabbing, and is localized to the abdomen. Patient reports radiation to back. Patient started experiencing this hour(s) (2) and it has been constant. No relieving factors improve symptom(s), Eating worsens symptoms . Patient notes loss of appetite and nausea/vomiting; denies chest pain, cough, diaphoresis, fever/chills, rash and shortness of breath. Patient did receive the following treatments prior to arrival, other (tums) Related Data Allergies Allergy/AdvReac Type Severity Reaction Status Date / Time No Known Allergies Allergy Verified 03/11/19 13:58 General Stated Complaint: Abd Prob BLAYNE: 4 Review of Systems Constitutional Reports as per HPI, Denies chills, Denies fatigue, Denies fever(s) and Denies headache(s) ENT Denies headache(s) Cardiovascular Reports as per HPI, Denies chest pain and Denies dyspnea Respiratory Reports as per HPI, Denies cough and Denies dyspnea Gastrointestinal Reports as per HPI Musculoskeletal Reports as per HPI and Denies back pain Integumentary/Breasts Reports as per HPI and Denies rash Neurologic Reports as per HPI and Denies headache(s) Endocrine Denies fatigue [facility] Medical History (Updated 06/07/19 @ 21:35 by Angelika Grover DO) Acute cholecystitis due to biliary calculus (Acute) (Resolved) Surgical History Previous section (Chronic) x. 2011, 2014 Family History Maternal Grandmother Bone cancer Father Heart disease Social History Smoking/Tobacco Use Status: Never Alcohol Intake: never Drug use: Never Household members: significant other and children Number of Children: 3 current occupation: teacher Do you feel safe at home: Yes Do you feel safe in your relationship?: Yes Additional Social history: Partner - Elliott. 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 RC/S with bilateral salpingectomy. [place] Female Reproductive History Menstrual control method: none History History 4 Para 3 Hx # Term Pregnancies 3 Multiple births 0 Hx # Pregnancies 0 Ectopic pregnancies 0 AB induced 1 Hx Number of Living Children 3 AB spontaneous 0 Past Pregnancies Del. Date GA/Weeks # Outcome Route Wgt Sex Labor [facility]th [facility]esthes [facility] 40 Successful 3.856 kg Male 18 hrs regional 05/06/13 Unsuccessful 12/28/14 Successful 4.026 kg Male [facility] 01/17/19 38 No Successful 2.75 kg Female 01/17/19 38 No Successful 3.118 kg Female [facility] Day Aguirre MD Delivery Date: 05/24/12 On 07/30/18 @ 13:39 Anusha Frias [place]; emergency C/S for distress in 2nd stage Delivery Date: 05/06/13 On 07/30/18 @ 13:42 Anusha Frias early elective TAB, Delivery Date: 12/28/14 On 07/30/18 @ 14:13 Anusha Frias [place]: Spontaneous labor and was 6 cm but had planned repeat C/S. Delivery Date: 01/17/19 No notes to display Delivery Date: 01/17/19 No notes to display Exam Const General: cooperative, healthy appearing, comfortable, no acute distress and well developed Nutritional Appearance: average body habitus and well nourished Orientation: alert and awake [facility] Head: normal to inspection Mouth: moist mucous membranes Resp Effort & Inspection: normal respiratory effort, able to speak in complete sentences and no respiratory distress Auscultation: clear to auscultation bilaterally, no rales, no rhonchi and no wheezes Cardio Rate: regular rate Rhythm: regular rhythm Heart Sounds: S1 normal and S2 normal GI Inspection: normal to inspection, no edema, non-distended, no incisions, no large pannus, no obesity, no visible herniation and no visible pulsation Palpation: soft, no aortic enlargement, not firm, guarding in the RUQ, hepatomegaly (palpable round area, consistent with gallbladder), no hernias, no masses, no pulsatile masses, not rigid, no splenomegaly, tender in the RUQ and Chaney's sign positive; not at McBurney's point and with no rebound tenderness and No ascites Percussion: normal to percussion Auscultation: normal bowel sounds Back/Spine/Pelvis Back: no CVA tenderness Skin General skin exam: no rashes or lesions noted Trauma: no lacerations or abrasions Neuro General: alert and awake Cognition: normal cognition Speech: speech normal Gait: normal gait Psych Appearance: grossly normal and well kempt Mental Status: mental status grossly normal Speech and Movement: speech and movement normal Course Vital Signs Temperature 36.5 C 06/07/19 19:41 Pulse 87 06/07/19 19:41 Respiratory Rate 18 06/07/19 19:41 Blood Pressure 130/80 06/07/19 19:41 Pulse Oximetry 100 06/07/19 19:41 Temperature 36.5 C 06/07/19 19:41 Temperature Source Skin 06/07/19 19:41 Pulse 87 06/07/19 19:41 Respiratory Rate 18 06/07/19 19:41 Respiratory Effort 06/07/19 19:48 Blood Pressure 130/80 06/07/19 19:41 Blood Pressure Position Sitting 06/07/19 19:41 Pulse Oximetry 100 06/07/19 19:41 Oxygen Delivery Method Room Air 06/07/19 19:41 Oxygen Flow Rate 0 06/07/19 19:41 Pain Level 9 06/07/19 19:48 Comment 06/07/19 19:41
--- NOTE | 2019-06-07 20:01 | DI.CT_ITS ---
SYMPTOM/DIAGNOSIS: RUQ PAIN CT ABDOMEN AND PELVIS: The lung bases are clear. The heart size is normal. There is distension of the gallbladder which shows a stone inferiorly. There is mild gallbladder wall thickening as well as some pericholecystic fluid. The findings may indicate acute cholecystitis. There is no dilatation of the common bile duct. No intrahepatic biliary dilatation is seen. There is mild periportal edema which could be secondary to vigorous hydration. A small liver cyst as well as a cyst at the lower pole of the left kidney is noted. There is a nonobstructing stone at the lower pole of the left kidney. A small cyst is seen at the upper pole of the right kidney. The pancreas, spleen and adrenals are unremarkable. There is some dehiscence of the anterior abdominal wall in the midline. The appendix appears normal. No bowel dilatation or inflammatory changes are seen. The bladder, uterus and ovaries are unremarkable. IMPRESSION: Gallbladder distension and wall thickening could indicate acute cholecystitis. There is a stone seen in the dependent portion of the gallbladder. No common duct stone or dilatation is seen.
[2019-06-07 20:18] LABS: Abs Immature Grans 0.01 k/cumm (0.0-0.09); Absolute Basophil Count 0.02 k/cumm (0.0-0.2); Absolute Lymphocyte Count 2.02 k/cumm (1.2-3.4); Absolute Monocyte Count 0.32 k/cumm (0.11-0.7); Absolute Neutrophil Count 2.77 k/cumm (1.2-6.7); Basophils % 0.4; Eosinophils % 3.7; HCT 40.3 % (36.0-46.0); HGB 13.7 g/dL (12.0-15.5); Immature Grans % 0.2; Lymphocytes % 37.8; Mean Corpuscular Volume 85.4 fL (80-95); Mean Platelet Volume 10.5 fL (8.0-11.0); Neutrophils % 51.9; Platelet Count 258 x1000/uL (130-400); RBC 4.72 m/cumm (4.00-5.20); RBC Distribution Width 12.4 % (11.7-14.6); White Blood Cell Count 5.34 k/cumm (4.4-10.8)
[2019-06-07] MEDS: Ondansetron 4 MG/2 ML VIAL IVP (20:20)
[2019-06-07] MEDS: MORPHine 10 MG/ML VIAL 2 MG IVP (20:21)
[2019-06-07 20:32] LABS: ALT 25 U/L (14-59); AST 20 U/L (15-37); Albumin 3.8 g/dL (3.4-5.0); Alkaline Phosphatase 83 U/L (46-116); Anion Gap 7.7 mmol/L (3-11); BUN 10 mg/dL (7-18); Bilirubin, Total 0.3 mg/dL (0.2-1.0); CO2 30.3 mmol/L (21.0-32.0); CREATININE 0.84 mg/dL (0.55-1.02); Calcium 8.7 mg/dL (8.5-10.1); Chloride 105 mmol/L (98-107); Glucose 116 mg/dL (70-100); Lipase 135 U/L (73-393); Potassium 3.4 mmol/L (3.5-5.1); Sodium 143 mmol/L (136-145); Total Protein 7.4 g/dL (6.4-8.2)
[2019-06-07] MEDS: Omnipaque 350 MG/ML 100 ML BTL IJ (20:46)
--- NOTE | 2019-06-07 21:14 | DI.VRAD_ITS ---
Addendum created by Aliya Macias MD on 06/07/2019 9:18:12 PM EDT THIS REPORT CONTAINS FINDINGS THAT MAY BE CRITICAL TO PATIENT CARE. The findings were verbally communicated via telephone conference with AMRITA HART at 9:17 PM EDT on 06/07/2019. The findings were acknowledged and understood. Initial report created on 06/07/2019 9:13:49 PM EDT EXAM: CT Abdomen and Pelvis With Contrast EXAM DATE/TIME: 06/07/2019 8:03 PM CLINICAL HISTORY: 33 years old, female; Abdominal pain; Localized; Right upper quadrant (ruq); Patient HX: Ruq pain; Per PT: Sudden onset 4pm TECHNIQUE: Imaging protocol: Computed tomography of the abdomen and pelvis with intravenous contrast. COMPARISON: US OB 2-3 trimester 03/09/2018 11:23 FINDINGS: Liver: Hepatomegaly. Gallbladder and bile ducts: Dilated intrahepatic biliary ducts. Distended gallbladder with pericholecystic fluid and gallstones. The common bile duct appears normal in size. Pancreas: Normal. No ductal dilation. Spleen: Normal. No splenomegaly. Adrenals: Normal. No mass. Kidneys and ureters: Punctate nonobstructing renal calculi. Hypodense subcentimeter lesion left and right kidney likely corresponding to a renal cyst. No hydronephrosis. Stomach and bowel: Unremarkable. No obstruction. No mucosal thickening. Appendix: The appendix is not definitely identified. Intraperitoneal space: Normal. No free air. No significant fluid collection. Vasculature: Unremarkable. No abdominal aortic aneurysm. Lymph nodes: Unremarkable. No enlarged lymph nodes. Bladder: Unremarkable as visualized. Reproductive: Unremarkable as visualized. Bones/joints: Unremarkable. No acute fracture. Soft tissues: Umbilical hernia. IMPRESSION: 1. Dilated intrahepatic biliary ducts. Distended gallbladder with gallstones and pericholecystic fluid consistent with acute cholecystitis. Hepatomegaly. 2. Bilateral nonobstructing renal calculi. Dictated and Authenticated by: Aliya Macias MD. Ordering:JOSSE Iqbal MD
[2019-06-07 21:17] LABS: Bilirubin Negative (Negative); Blood Moderate (Negative); Clarity Sl Cloudy (Clear); Glucose Negative (Negative); Ketones Negative (Negative); Leukocyte Esterase Negative (Negative); Nitrite Negative (Negative); pH 8.5 (5-8)
[2019-06-07 21:27] LABS: Bacteria Rare HPF (Negative); C & S Indicated? No; Casts Negative LPF (Negative); Crystals Many Amorphous HPF (Negative); Epithelial Cells Many HPF (Negative); Mucus Negative (Negative); WBC 0-2 HPF (0-5)
--- NOTE | 2019-06-07 21:34 | HPE_ITS ---
Date of service: 06/07/19 Time of Service: 21:34 Assessment and Plan (1) History of delivery: Current visit: No Status: Resolved in January 2019 (2) Acute cholecystitis due to biliary calculus: Current visit: Yes Status: Acute CT reviewed pt will be admitted for IV abx/ hydration/pain management/control of N & V Sx on Fri labs/electrolytes nl today. d/w risk vs benefit risk: bleeding/infection/pneumonia/blood clots. possible open procedure. complications of anesthesia (she had no problems w/C sections) risks of damage to bowels/bladder/blood vessel/bile ducts- which code require laparotomy for repair. History of Present Illness Consults Consult date: 06/07/19 Requesting physician: Farida Cespedes Narrative: Pt came into ED last pm w/ acute onset of RUQ pain and n/v. She has never had problems like this before. No Hx of H/I. There is an extensive family hx of GB Dx. She recently gave in January (c Section). She was having pain/pressure sensation in RUQ during 3rd trimester. But this was attr ibuted to /adhesions on her uterus from previous C sections. She has not been having pain/indigestion/diarrhea until last night. She denies any unusual activities last pm or trauma. She is not breast feeding currently. Today she is feeling better. no fever/chills. no n/v and is hungry. No problems w/ anesthesia. Review of Systems Review of Systems All systems reviewed & are unremarkable except as noted in HPI and below Constitutional Reports as per HPI, Reports system reviewed and no additional complaints, except as docu, Denies anorexia, Denies chills, Denies difficulty sleeping, Denies fatigue, Denies headache(s), Denies lethargy, Denies malaise, Denies poor appetite, Denies weakness, Denies weight gain and Denies weight loss Eyes Reports as per HPI, Reports system reviewed and no additional complaints, except as docu and Denies change in vision ENT Reports system reviewed and no additional complaints, except as docu, Reports as per HPI, Denies change in voice, Denies dental pain, Denies dysphagia, Denies dizziness, Denies facial pain, Denies headache(s) and Denies odynophagia Cardiovascular Reports as per HPI, Reports system reviewed and no additional complaints, except as docu, Denies chest pain, Denies chest pain with activity, Denies syncope, Denies leg edema and Denies dyspnea Comments: no bp or heart issues w/ preg Respiratory Reports as per HPI, Reports system reviewed and no additional complaints, except as docu, Denies chest congestion, Denies cough, Denies pain with cough and Denies dyspnea Gastrointestinal Reports as per HPI, Reports system reviewed and no additional complaints, except as docu, Denies abdominal pain, Denies bloating, Denies change in bowel habits, Denies change in stool character, Denies constipation, Denies cramping, Denies dysphagia, Denies early satiety, Denies heartburn, Denies diarrhea, Denies nausea, Denies odynophagia and Denies vomiting Comments: yest had ruq pain radiating to back. uncontrolled n/v. no diarrhea. +chills. today feels much better and is hungry. C section well healed. small umbilical hernia. Musculoskeletal Reports system reviewed and no additional complaints, except as docu, Reports as per HPI, Denies abnormal gait, Denies arthralgias and Denies muscle weakness Integumentary/Breasts Reports system reviewed and no additional complaints, except as docu, Reports as per HPI, Denies changing lesions, Denies new lesions and Denies jaundice Neurologic Reports system reviewed and no additional complaints, except as docu, Reports as per HPI, Denies abnormal speech, Denies abnormal gait, Denies dizziness, Denies syncope, Denies headache(s), Denies memory loss and Denies weakness Psychiatric Reports system reviewed and no additional complaints, except as docu, Reports as per HPI, Denies change in appetite and Denies memory loss Endocrine Denies fatigue, Denies polydipsia and Denies polyuria Comments: no gestational DM Hematologic/Lymphatic Reports system reviewed and no additional complaints, except as docu, Denies easy bleeding and Denies easy bruising Allergic/Immunologic Denies system reviewed and no additional complaints, except as docu, Reports as per HPI and Denies urticaria [facility] Medical History (Updated 06/07/19 @ 21:35 by Angelika Grover DO) Acute cholecystitis due to biliary calculus (Acute) (Resolved) Surgical History Previous section (Chronic) x. 2012, 2014 Family History Maternal Grandmother Bone cancer Father Heart disease Social History Smoking/Tobacco Use Status: Never Alcohol Intake: never Drug use: Never Household members: significant other and children Number of Children: 3 current occupation: teacher Do you feel safe at home: Yes Do you feel safe in your relationship?: Yes Additional Social history: Partner - Elliott. 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 RC/S with bilateral salpingectomy. [place] Female Reproductive History Menstrual control method: none History History 4 Para 3 Hx # Term Pregnancies 3 Multiple births 0 Hx # Pregnancies 0 Ectopic pregnancies 0 AB induced 1 Hx Number of Living Children 3 AB spontaneous 0 Past Pregnancies Del. Date GA/Weeks # Outcome Route Wgt Sex Labor Lgth Anesthes ia Location [facility] 05/24/12 40 Successful 3.856 kg Male 18 hrs regional 05/06/13 Unsuccessful 12/28/14 Successful 4.026 kg Male regional 01/17/19 38 No Successful 2.75 kg Female 01/17/19 38 No Successful 3.118 kg Female [facility] Day Aguirre MD Delivery Date: 05/24/12 On 07/30/18 @ 13:39 Anusha Frias [place]; emergency C/S for distress in 2nd stage Delivery Date: 05/06/13 On 07/30/18 @ 13:42 Anusha Frias early elective TAB, Delivery Date: 12/28/14 On 07/30/18 @ 14:13 Anusha Frias RENETTA Baker: Spontaneous labor and was 6 cm but had planned repeat C/S. Delivery Date: 01/17/19 No notes to display Delivery Date: 01/17/19 No notes to display Meds Allergies Allergy/AdvReac Type Severity Reaction Status Date / Time No Known Allergies Allergy Verified 03/11/19 13:58 Exam Const General: cooperative, healthy appearing, comfortable, no acute distress, well developed and well groomed Nutritional Appearance: average body habitus and well nourished Orientation: alert, awake and oriented x3 [facility] Head: normal to inspection, normocephalic and atraumatic Ears: hearing grossly normal bilaterally and external ears normal General nose exam: external nose normal Face and sinus: normal facial exam and sinuses nontender Mouth: oral mucosae normal, lip normal, tongue normal and moist mucous membranes Teeth and gingiva: dentition normal Eyes General: appearance normal, both eyes and all related structures Conjunctivae: conjunctivae normal Sclera: sclerae normal Pupils: PERRL Neck Neck: normal visual inspection and full ROM Chest Chest: normal inspection of the chest Resp Effort & Inspection: normal respiratory effort, able to speak in complete sentences, no cough, no nasal flaring, not tachypneic and no use of accessory muscles Auscultation: clear to auscultation bilaterally, no rales, no rhonchi and no wheezes Cardio Jugular venous pressure: no JVD Rate: regular rate Rhythm: regular rhythm GI Inspection: normal to inspection, no edema, non-distended and scar (c section. well healed ) Palpation: soft, no masses, nontender and No ascites Auscultation: normal bowel sounds Other: mild ruq pain. was severe last pm and radiated to back. min pain today. good BS. sm umbilical hernia Skin General skin exam: no rashes or lesions noted Trauma: no lacerations or abrasions Neuro General: alert, oriented x3, oriented, gait normal, moves all extremities, no focal motor deficits and CN's II-XI intact bilaterally Cognition: normal cognition Speech: speech normal Gait: normal gait Motor: muscle tone normal throughout Extrem General: normal to inspection, full ROM and no clubbing, cyanosis or edema Psych Appearance: grossly normal and well kempt Mental Status: mental status grossly normal Speech and Movement: speech and movement normal Affect: normal affect Results Labs : 06/08/19 06:40 06/08/19 06:40 Laboratory Results - last 24 hr 06/07/19 06/07/19 06/07/19 20:15 20:15 21:09 WBC 5.34 RBC 4.72 Hgb 13.7 Hct 40.3 MCV 85.4 MCH 29.0 MCHC 34.0 RDW 12.4 Plt Count 258 MPV 10.5 Immature Gran % 0.2 Neutrophils % 51.9 Lymphocytes % 37.8 Monocytes % 6.0 Eosinophils % 3.7 Basophils % 0.4 Absolute Neutrophils 2.77 Absolute Lymphocytes 2.02 Absolute Monocytes 0.32 Absolute Eosinophils 0.20 Absolute Basophils 0.02 Sodium 143 Potassium 3.4 L Chloride 105 Carbon Dioxide 30.3 Anion Gap 7.7 BUN 10 Creatinine 0.84 Estimated GFR/1.73 m2 >= 60.00 Glucose 116 H Calcium 8.7 Total Bilirubin 0.3 AST 20 ALT 25 Alkaline Phosphatase 83 Total Protein 7.4 Albumin 3.8 Lipase 135 Urine Color Yellow Urine Clarity Sl cloudy Urine pH 8.5 H Ur Specific [place] 1.010 Urine Protein Negative Urine Ketones Negative Urine Blood Moderate H Urine Nitrite Negative Urine Bilirubin Negative Urine Urobilinogen 1.0 H Ur Leukocyte Esterase Negative Urine RBC 3-5 H Urine WBC 0-2 Ur Epithelial Cells Many Urine Crystals Many amorphous Urine Bacteria Rare Urine Casts Negative Urine Mucus Negative Ur Culture Indicated? No Urine Glucose Negative Last Vital Signs Temp 36.5 C 06/07/19 19:41 Pulse 87 06/07/19 19:41 Resp 18 06/07/19 19:41 BP 130/80 06/07/19 19:41 Pulse Ox 100 06/07/19 19:41
[2019-06-07 22:14] VITALS: BP 116/72; PULSE 98; RESP 17; TEMP 36.7; O2SAT 100
[2019-06-07] MEDS: Normal Saline 1,000 ML 150 ML IV (22:41)
[2019-06-07] MEDS: Enoxaparin 40 MG/0.4 ML SYR SC (22:41)
[2019-06-07] MEDS: Normal Saline Flush 10 ML SYR IVP (22:41)
[2019-06-07] MEDS: FAMOTIDINE 20 MG/50 ML BAG 200 MG IVPB (22:41)
[2019-06-07] MEDS: ACETAMINOPHEN 1,000 MG/100 ML BTL 400 MG IVPB (23:33)
[2019-06-08] MEDS: PIPERACILLIN/TAZO 4.5 GM in Normal Saline 100 ML IVPB ×4 (00:43→22:25)
--- NOTE | 2019-06-08 06:47 | W.PM.PROGNOT ---
Date of Service Date of service: 06/08/19 Time of Service: 06:47 Assessment and Plan (1) Acute cholecystitis due to biliary calculus: Current visit: Yes Status: Acute Currently she is comfortable. Pain is under control. denies nausea and vomiting. Will continue IV hydration and antibiotics. Afebrile overnight. AM Labs pending. Continue NPO She will need Cholecystectomy. Subjective Interval history since last seen: Patient reports that she is feeling better today. She denies any current abdominal pain, nausea or vomiting. Exam Const General: cooperative, healthy appearing and comfortable Orientation: alert and oriented x3 Resp Effort & Inspection: normal respiratory effort, no audible wheezes and no cough Auscultation: clear to auscultation bilaterally GI Inspection: normal to inspection Palpation: soft, no guarding and tender (Mild RUQ) in the RUQ Auscultation: normal bowel sounds Objective Objective Clinical Data: Abnormal lab results 06/07/19 06/07/19 Range/Units 20:15 21:09 Potassium 3.4 L (3.5-5.1) mmol/L Glucose 116 H (70-100) mg/dL Urine pH 8.5 H (5-8) Urine Blood Moderate H (Negative) Urine Urobilinogen 1.0 H (Up TO 0.2) EU/dL Urine RBC 3-5 H (0-2) Vital Signs Temperature 36.7 C 06/07/19 22:14 Temperature Source Skin 06/07/19 19:41 Pulse 98 H 06/07/19 22:14 Pulse Rhythm Regular 06/07/19 22:14 Respiratory Rate 17 06/07/19 22:14 Respiratory Effort 06/07/19 22:14 Respiratory Depth Normal 06/07/19 22:14 Respiratory Pattern Normal 06/07/19 22:14 Blood Pressure 116/72 06/07/19 22:14 Blood Pressure Position Sitting 06/07/19 19:41 Pulse Oximetry 100 06/07/19 22:14 Oxygen Delivery Method Room Air 06/07/19 22:14 Oxygen Flow Rate 0 06/07/19 22:14 Pain Level 2 06/07/19 23:33 Comment 06/07/19 19:41 Intake & Output 06/07/19 06/07/19 06/08/19 06:59 18:59 06:59 Intake Total 250 / 250 Balance 250 / 250 Weight 55.3 kg Intake: IV 250 / 250 Laboratory Results WBC 5.34 k/cumm (4.4-10.8) 06/07/19 20:15 RBC 4.72 m/cumm (4.00-5.20) 06/07/19 20:15 Hgb 13.7 g/dL (12.0-15.5) 06/07/19 20:15 Hct 40.3 % (36.0-46.0) 06/07/19 20:15 MCV 85.4 fL (80-95) 06/07/19 20:15 MCH 29.0 pg (27.0-33.0) 06/07/19 20:15 MCHC 34.0 g/dL (32.0-36.0) 06/07/19 20:15 RDW 12.4 % (11.7-14.6) 06/07/19 20:15 Plt Count 258 x1000/uL (130-400) 06/07/19 20:15 MPV 10.5 fL (8.0-11.0) 06/07/19 20:15 Immature Gran % 0.2 06/07/19 20:15 51.9 06/07/19 20:15 37.8 06/07/19 20:15 6.0 06/07/19 20:15 3.7 06/07/19 20:15 0.4 06/07/19 20:15 Absolute Neutrophils 2.77 k/cumm (1.2-6.7) 06/07/19 20:15 Absolute Lymphocytes 2.02 k/cumm (1.2-3.4) 06/07/19 20:15 Absolute Monocytes 0.32 k/cumm (0.11-0.7) 06/07/19 20:15 Absolute Eosinophils 0.20 k/cumm (0.0-0.7) 06/07/19 20:15 Absolute Basophils 0.02 k/cumm (0.0-0.2) 06/07/19 20:15 Sodium 143 mmol/L (136-145) 06/07/19 20:15 Potassium 3.4 mmol/L (3.5-5.1) L 06/07/19 20:15 Chloride 105 mmol/L (98-107) 06/07/19 20:15 Carbon Dioxide 30.3 mmol/L (21.0-32.0) 06/07/19 20:15 7.7 mmol/L (3-11) 06/07/19 20:15 BUN 10 mg/dL (7-18) 06/07/19 20:15 0.84 mg/dL (0.55-1.02) 06/07/19 20:15 >= 60.00 (mL/min/1.73m2) 06/07/19 20:15 Glucose 116 mg/dL (70-100) H 06/07/19 20:15 Calcium 8.7 mg/dL (8.5-10.1) 06/07/19 20:15 0.3 mg/dL (0.2-1.0) 06/07/19 20:15 AST 20 U/L (15-37) 06/07/19 20:15 ALT 25 U/L (14-59) 06/07/19 20:15 83 U/L (46-116) 06/07/19 20:15 7.4 g/dL (6.4-8.2) 06/07/19 20:15 3.8 g/dL (3.4-5.0) 06/07/19 20:15 135 U/L (73-393) 06/07/19 20:15 Yellow (Yellow) 06/07/19 21:09 Sl cloudy (Clear) 06/07/19 21:09 8.5 (5-8) H 06/07/19 21:09 Ur Specific [place] 1.010 (1.005-1.025) 06/07/19 21:09 Negative mg/dL (Negative) 06/07/19 21:09 Negative mg/dL (Negative) 06/07/19 21:09 Moderate (Negative) H 06/07/19 21:09 Negative (Negative) 06/07/19 21:09 Negative (Negative) 06/07/19 21:09 1.0 EU/dL (Up TO 0.2) H 06/07/19 21:09 Ur Leukocyte Esterase Negative (Negative) 06/07/19 21:09 3-5 (0-2) H 06/07/19 21:09 0-2 HPF (0-5) 06/07/19 21:09 Ur Epithelial Cells Many HPF (Negative) 06/07/19 21:09 Many amorphous HPF (Negative) 06/07/19 21:09 Rare HPF (Negative) 06/07/19 21:09 Negative LPF (Negative) 06/07/19 21:09 Negative (Negative) 06/07/19 21:09 Ur Culture Indicated? No 06/07/19 21:09 Negative mg/dL (Negative) 06/07/19 21:09
[2019-06-08 07:05] LABS: Abs Immature Grans 0.01 k/cumm (0.0-0.09); Absolute Basophil Count 0.01 k/cumm (0.0-0.2); Absolute Lymphocyte Count 1.24 k/cumm (1.2-3.4); Absolute Neutrophil Count 3.48 k/cumm (1.2-6.7); Basophils % 0.2; Eosinophils % 1.9; HCT 38.4 % (36.0-46.0); HGB 12.5 g/dL (12.0-15.5); Immature Grans % 0.2; Lymphocytes % 24.1; Mean Corp. HGB Concentration 32.6 g/dL (32.0-36.0); Mean Corpuscular Hemoglobin 28.2 pg (27.0-33.0); Mean Corpuscular Volume 86.7 fL (80-95); Mean Platelet Volume 10.4 fL (8.0-11.0); Monocytes % 5.8; Neutrophils % 67.8; Platelet Count 244 x1000/uL (130-400); RBC 4.43 m/cumm (4.00-5.20); RBC Distribution Width 12.4 % (11.7-14.6); White Blood Cell Count 5.14 k/cumm (4.4-10.8)
[2019-06-08] MEDS: ACETAMINOPHEN 1,000 MG/100 ML BTL 400 MG IVPB ×2 (07:30→15:58)
[2019-06-08 07:39] LABS: ALT 43 U/L (14-59); AST 38 U/L (15-37); Albumin 3.2 g/dL (3.4-5.0); Alkaline Phosphatase 73 U/L (46-116); Amylase 28 U/L (25-115); Anion Gap 7.8 mmol/L (3-11); BUN 8 mg/dL (7-18); Bilirubin, Total 0.6 mg/dL (0.2-1.0); CO2 27.2 mmol/L (21.0-32.0); CREATININE 0.91 mg/dL (0.55-1.02); Calcium 7.9 mg/dL (8.5-10.1); Chloride 108 mmol/L (98-107); Glucose 89 mg/dL (70-100); Lipase 54 U/L (73-393); Potassium 3.9 mmol/L (3.5-5.1); Sodium 143 mmol/L (136-145); Total Protein 6.2 g/dL (6.4-8.2)
[2019-06-08 08:24] VITALS: BP 104/70; PULSE 74; RESP 19; TEMP 37; O2SAT 97
--- NOTE | 2019-06-08 11:44 | PDOC.CMIN ---
- If Service Date Differs Date of service: 06/08/19 Time of Service: 11:44 Care Management Initial Assess REASON FOR HOSPITALIZATION:: Acute cholecystitis due to biliary calculus PAST MEDICAL HISTORY/PAST SURGICAL HISTORY:: Medical History. Acute cholecystitis due to biliary calculus (Acute). (Resolved). Surgical History. Previous section (Chronic). x. 2011, 2014 PREVIOUS FUNCTIONAL STATUS/SOCIAL/FAMILY SUPPORTS:: Yenny lives in [facility] with her , Elliott. They have three children together. 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 She is independent at baseline with no equipment or services in the community. CURRENT FUNCTIONAL STATUS:: Yenny was sitting up in her bed during interview with CM. Her , Elliott was sitting in the room with her. She was pleasant and open to talk with CM about her plan of care. She stated that her pain is under control. She knows the plan which is to go to surgery tomorrow. Her diet is currently NPO. She will stay tonight to manage her pain and she states that she is hoping to go home tomorrow evening. CM will continue to follow. ADVANCE DIRECTIVES:: None on file. CM will provide paperwork for her to fill out while she is here, as requested by Yenny. Has patient been provided with information about the portal?: Yes Did the patient sign up for the portal?: No (May sign up later) CODE STATUS:: Full Code INSURANCE COVERAGE / FINANCIAL ISSUES:: [employer] CURRENT HOME/COMMUNITY SERVICES/EQUIPMENT:: None identified at this time. PRIMARY CARE PHYSICIAN:: FORTINO Puente POTENTIAL DISCHARGE NEEDS:: Review of discharge plan, follow up appointment. CM will follow. PATIENT/FAMILY EDUCATION NEEDS:: Review of discharge plan, discussion of self care needs upon discharge including Ask Me Three. ANTICIPATED BARRIERS TO DISCHARGE:: None identified at this time. TRANSPORTATION:: Home via private vehicle driven by her , Elliott. PLAN:: Yenny will go to surgery for cholecystectomy on 06/09/19. She will remain here overnight for pain management, and she will remain NPO anticipating surgery. She states that her pain is under control currently and she is comfortable with the plan. Once medically cleared, Yenny will go home with no services. CM will follow.
[2019-06-08] MEDS: FAMOTIDINE 20 MG/50 ML BAG 200 MG IVPB ×2 (11:55→22:03)
--- NOTE | 2019-06-08 13:44 | CHAPLAIN ---
Yenny and her Elliott were both very pleasant. She seems comfortable being here, and hopes to be discharged tomorrow.
[2019-06-08] MEDS: Normal Saline 1,000 ML 100 ML IV (15:04)
[2019-06-08 16:15] VITALS: BP 112/71; PULSE 56; RESP 18; TEMP 36.6; O2SAT 98
[2019-06-09] VITALS (14 sets, daily range): BP systolic 100–128; BP diastolic 61–82; PULSE 47–63; RESP 12–19; TEMP 36.2–36.6; O2SAT 97–100
[2019-06-09] MEDS: ACETAMINOPHEN 1,000 MG/100 ML BTL 400 MG IVPB ×4 (00:20→23:30)
[2019-06-09] MEDS: Normal Saline 1,000 ML 100 ML IV (05:16)
[2019-06-09] MEDS: PIPERACILLIN/TAZO 4.5 GM in Normal Saline 100 ML IVPB ×3 (06:30→21:22)
--- NOTE | 2019-06-09 07:10 | W.PM.PROGNOT ---
Documented by User: GABRIELA Ac 06/09/19 07:12 Date of Service Date of service: 06/09/19 Time of Service: 07:10 Assessment and Plan (1) Acute cholecystitis due to biliary calculus: Current visit: Yes Status: Acute Pain is under control. Scheduled for lap. carroll later today. Discussed and answered questions regarding the surgery and the recovery. Will continue IV hydration and antibiotics. Continue NPO She will need Cholecystectomy. Subjective Interval history since last seen: Doing pretty well today. She reports she tolerated a clear liquid diet yesterday and has been NPO since 2199. She reports her pain is well controlled. Exam Const General: cooperative, healthy appearing and comfortable Orientation: alert and oriented x3 Resp Effort & Inspection: normal respiratory effort, no audible wheezes and no cough GI Inspection: normal to inspection and non-distended Palpation: soft, not firm and nontender Auscultation: normal bowel sounds Objective Objective Clinical Data: Abnormal lab results 06/08/19 Range/Units 06:40 Chloride 108 H (98-107) mmol/L Calcium 7.9 L (8.5-10.1) mg/dL AST 38 H (15-37) U/L Total Protein 6.2 L (6.4-8.2) g/dL Albumin 3.2 L (3.4-5.0) g/dL Lipase 54 L (73-393) U/L Vital Signs Temperature 36.6 C 06/08/19 16:15 Temperature Source Tympanic 06/08/19 16:15 Pulse 56 L 06/08/19 16:15 Pulse Rhythm Regular 06/08/19 20:15 Respiratory Rate 18 06/08/19 16:15 Respiratory Effort 06/08/19 20:15 Respiratory Depth Normal 06/08/19 20:15 Respiratory Pattern Normal 06/08/19 20:15 Blood Pressure 112/71 06/08/19 16:15 Blood Pressure Position Sitting 06/07/19 19:41 Pulse Oximetry 98 06/08/19 16:15 Oxygen Delivery Method Room Air 06/08/19 16:15 Oxygen Flow Rate 0 06/08/19 16:15 Pain Level 0 06/08/19 16:15 Comment 06/07/19 19:41 Intake & Output 06/08/19 06/09/19 06/09/19 18:59 06:59 18:59 Intake Total 471.667 / 7391.927 0040.667 / 1763.334 Output Total 300 / 300 Balance 171.667 / 4150.878 6213.667 / 1463.334 Intake: IV 351.667 / 8790.407 1517.667 / 1643.334 Oral 120 / 120 Output: Urine 300 / 300 Other: Urine Color Yellow Urine Appearance Clear Comment pt voids independently in toilet Voiding Methods Toilet Toilet Laboratory Results WBC 5.14 k/cumm (4.4-10.8) 06/08/19 06:40 RBC 4.43 m/cumm (4.00-5.20) 06/08/19 06:40 Hgb 12.5 g/dL (12.0-15.5) 06/08/19 06:40 Hct 38.4 % (36.0-46.0) 06/08/19 06:40 MCV 86.7 fL (80-95) 06/08/19 06:40 MCH 28.2 pg (27.0-33.0) 06/08/19 06:40 MCHC 32.6 g/dL (32.0-36.0) 06/08/19 06:40 RDW 12.4 % (11.7-14.6) 06/08/19 06:40 Plt Count 244 x1000/uL (130-400) 06/08/19 06:40 MPV 10.4 fL (8.0-11.0) 06/08/19 06:40 Immature Gran % 0.2 06/08/19 06:40 67.8 06/08/19 06:40 24.1 06/08/19 06:40 5.8 06/08/19 06:40 1.9 06/08/19 06:40 0.2 06/08/19 06:40 Absolute Neutrophils 3.48 k/cumm (1.2-6.7) 06/08/19 06:40 Absolute Lymphocytes 1.24 k/cumm (1.2-3.4) 06/08/19 06:40 Absolute Monocytes 0.30 k/cumm (0.11-0.7) 06/08/19 06:40 Absolute Eosinophils 0.10 k/cumm (0.0-0.7) 06/08/19 06:40 Absolute Basophils 0.01 k/cumm (0.0-0.2) 06/08/19 06:40 Sodium 143 mmol/L (136-145) 06/08/19 06:40 Potassium 3.9 mmol/L (3.5-5.1) 06/08/19 06:40 Chloride 108 mmol/L (98-107) H 06/08/19 06:40 Carbon Dioxide 27.2 mmol/L (21.0-32.0) 06/08/19 06:40 7.8 mmol/L (3-11) 06/08/19 06:40 BUN 8 mg/dL (7-18) 06/08/19 06:40 0.91 mg/dL (0.55-1.02) 06/08/19 06:40 >= 60.00 (mL/min/1.73m2) 06/08/19 06:40 Glucose 89 mg/dL (70-100) 06/08/19 06:40 Calcium 7.9 mg/dL (8.5-10.1) L 06/08/19 06:40 0.6 mg/dL (0.2-1.0) 06/08/19 06:40 AST 38 U/L (15-37) H 06/08/19 06:40 ALT 43 U/L (14-59) 06/08/19 06:40 73 U/L (46-116) 06/08/19 06:40 6.2 g/dL (6.4-8.2) L 06/08/19 06:40 3.2 g/dL (3.4-5.0) L 06/08/19 06:40 Amylase 28 U/L (25-115) 06/08/19 06:40 54 U/L (73-393) L 06/08/19 06:40 Yellow (Yellow) 06/07/19 21:09 Sl cloudy (Clear) 06/07/19 21:09 8.5 (5-8) H 06/07/19 21:09 Ur Specific [place] 1.010 (1.005-1.025) 06/07/19 21:09 Negative mg/dL (Negative) 06/07/19 21:09 Negative mg/dL (Negative) 06/07/19 21:09 Moderate (Negative) H 06/07/19 21:09 Negative (Negative) 06/07/19 21:09 Negative (Negative) 06/07/19 21:09 1.0 EU/dL (Up TO 0.2) H 06/07/19 21:09 Ur Leukocyte Esterase Negative (Negative) 06/07/19 21:09 3-5 (0-2) H 06/07/19 21:09 0-2 HPF (0-5) 06/07/19 21:09 Ur Epithelial Cells Many HPF (Negative) 06/07/19 21:09 Many amorphous HPF (Negative) 06/07/19 21:09 Rare HPF (Negative) 06/07/19 21:09 Negative LPF (Negative) 06/07/19 21:09 Negative (Negative) 06/07/19 21:09 Ur Culture Indicated? No 06/07/19 21:09 Negative mg/dL (Negative) 06/07/19 21:09 Documented by User: Angelika Grover DO 06/09/19 10:34 Assessment and Plan (1) Acute cholecystitis due to biliary calculus: Current visit: Yes Status: Acute Patient seen and examined this a.m. She is doing well. No significant pain. She is able to tolerate some liquids yesterday. No nausea at this time. She has had no temperatures. I did review surgery with her today and expectations. She is prone to nausea when she stopped feeling well and we discussed that we can help her with this and to let us know we discussed what she could expect during surgery retired recovery time and risks including but not limited to bleeding infection pneumonia blood clots complications of anesthesia possible damage to bowel bladder blood vessels bile ducts and possibility of an open procedure. However for her this is quite low. She is stable for proposed procedure today. She also has an incidental umbilical hernia that we will repair at the time of surgery.
[2019-06-09] MEDS: Ondansetron 4 MG/2 ML VIAL IVP (10:24)
--- NOTE | 2019-06-09 10:24 | PHARADMIT ---
Admission Pharmacy Clinical Review Acute Cholecysitis & Cholelithiasis, (Lap Choly today 06/09) Code Status Full Code Current Weight Wgt-55.3 kg Renally Cleared and Narrow Therapeutic Index Meds CrCl~ 76.7 mL.min Meds-OK QTc Value / Action Taken QTc-424 () BP Control, Fever BP- 119/80 Tmax-36.7C Electrolytes reviewed Na-143 K+3.9 DVT Prophylaxis Lovenox Opiate Usage / Scheduled Bowel Regimen Ordered Yes No (NPO) Plt/SCr for Heparin / Enoxaparin Plts- 244 SCr-0.91 INR for Warfarin na H/H stable, WBC/Bands H&H- 12.5/38.4 WBC- 5.14 Antibiotic appropriateness Zosyn Cultures and Sensitivities NONE Surgical ABX d/c within 24 hr na DM control / Insulin Dosing BG-89 Heart Failure (Check EF%) (DAMIEN's, B-Block, Diuretics) none IV to PO Switch No Home Meds Reviewed Yes Home Meds Not Ordered Comments
[2019-06-09] MEDS: Normal Saline Flush 10 ML SYR IVP ×4 (10:25→16:54)
[2019-06-09] MEDS: FAMOTIDINE 20 MG/50 ML BAG 200 MG IVPB (10:30)
[2019-06-09] MEDS: Lactated Ringers 1,000 ML 125 ML IV ×3 (12:34→19:19)
[2019-06-09] MEDS: Cellulose,Oxidized 4X8 1 PACKET MC ×2 (13:50→13:59)
--- NOTE | 2019-06-09 13:55 | GB_PTH ---
PATIENT: Yenny Benitez LOC: [facility]#:[id number] AGE/SX: 33/F ROOM: RE06/07/[address]: Angelika Grover : 1985 BED: A DIS: 06/10/2019 SPEC #: [id number] RECD: 06/09/19 17:15 STATUS: SARINA RETamiko #: [id number] MISSY: 06/09/19 13:[address]: Angelika Grover DEPT: Surgical Specimen RECD BY: Nina Styles ENTERED: 06/09/19 17:16 SP TYPE: GB OTHR DR: Radha Leigh Tissues: 1 - GALLBLADDER Procedures: GROSS AND MICRO LEVEL 3 Comments: [id number]
--- NOTE | 2019-06-09 14:37 | W.PM.OP ---
Date of service: 06/09/19 Time of Service: 14:37 Operative Note DATE OF PROCEDURE: 06/09/19 PRE-OP DIAGNOSIS: acute carroll w/ stones POST-OP DIAGNOSIS: same PROCEDURE: lap carroll SURGEON: Camila Choudhury PET TRAINING INSTRUCTOR: Zac Almazan ANESTHESIA: GETA ESTIMATED BLOOD LOSS: 100 PATHOLOGY: other COMPLICATIONS: None Patient was transported to: PACU Patient's condition: stable Procedure Description: The pt rpesented to the ED w/ acute cholecystis & cholelithiasis. regarding acute on chronic cholecystitis, cholelithiasis and is here today for laparoscopic cholecystectomy. Informed consent was obtained, explaining risks and benefits of the procedure including but not limited to bleeding, infection, pneumonia, blood clots, possible damage to bowel, bladder, blood vessels, bile ducts, possible open procedure, complications of general anesthesia and other unforetold complications. PROCEDURE: The patient agrees and is brought to the operative room suite and placed in supine position. Anesthesia was administered per the Department of Anesthesia. The patient did receive IV antibiotics. NG tube and Corey catheter are placed. The patient was prepped and draped in the usual sterile fashion using DuraPrep scrub solution. Pause for the cause was done. 30cc of .25% marcaine w/ epi is used for local anesthetization. A cut down is performed at the umbilicus - she does have a small umbilical hernia. The #5 port is inserted into the abdomen. Insuflation is begin. The camera was inserted through the port and shows no damage to underlying structures. A 10 mm port was then placed in the epigastric position under direct visualization following creation of local field blocks as well as two 5 mm ports in the right upper quadrant. The GB is distended and edematous. There is some free bile around the jessica. The gallbladder fundus was grasped and retracted towards the right shoulder. Infundibulum was grasped and retracted laterally. The hepat-duodenal ligament is entered. The cystic duct and artery are dissected out and the most inferior portion of the gallbladder plate is removed from the liver and the critical view of safety was obtained after clearing away all fatty material. Endo Clips were placed across the duct and artery and these structures are divided. The remainder of the gallbladder was excised from the liver bed. The gallbladder was placed in a bag and brought out. Examination of the gallbladder shows indeed the cystic duct and artery to have been divided. There was some generalized oozing from the liver bed- and surgicel and FloSeal were placed. There was no bleeding at the time of closure. There was no bile leakage from the clips sites. The remainder of the abdomen was copiously irrigated with a liter of saline. All saline is removed. There is no bleeding or bile leakage from the liver bed or the clips sites. All ports and instruments are removed. Pneumoperitoneum is evacuated and the port sites are monitored to make sure there is no bleeding at the time of desufflation. The fascia under the 10mm port and the umbilical hernia is closed with O vicyrl. Port sites are irrigated and the skin is closed with 4-0 Monocryl in a running subcuticular fashion on the Lg ports. Skin Efix is used on the 5mm port sites. The patient tolerated the procedure well without complications, transferred to the recovery room in stable condition. CAMILA CHOUDHURY, DO
[2019-06-09] MEDS: fentaNYL 100 MCG/2 ML VIAL IVP ×2 (15:10→15:19)
[2019-06-09] MEDS: HYDROmorphone 2 MG/ML VIAL IVP (15:48)
--- NOTE | 2019-06-09 16:07 | PDOC.CMPRO ---
- If Service Date Differs Date of service: 06/09/19 Time of Service: 16:07 Care Management Progress Note S/O: CM attempted to visit Yenny three times, but she was out of the room each time. She was taken to OR to have her gallbladder removed and was not available for a visit. CM will follow and check in on her tomorrow. A: Yenny is a 33 year old female who came to the ED on 06/07/19 for abdominal pain. She was given an abdomen/pelvis CT and it was determined that she has acute cholecystitis due to biliary calculus. She also has an incidental umbilical hernia. P: She is scheduled for a laparoscopic cholecystectomy with hernia repair on 06/09/2019. She will discharge home with no services when medically cleared. CM will follow.
[2019-06-09] MEDS: HYDROmorphone 2 MG/ML VIAL 0.5 MG IVP ×3 (16:32→23:30)
--- NOTE | 2019-06-09 16:35 | W.PM.PROGNOT ---
Date of Service Date of service: 06/09/19 Time of Service: 16:35 Assessment and Plan (1) Acute cholecystitis due to biliary calculus: Current visit: Yes Status: Acute s/p lap carroll for acute carrlol w/ stones Antibiotics: zosyn DVT prophylaxis:stopped lovnox b/c of concerns for bleeding from liver bed GI prophylaxis: pt was on pepcid. no hx of GI issues. should be able to tolerate po's tonight Constipation prophylaxis: will start on miralx or mom in am after GETA pt has hx of PONV. so far no problems. cont supportive care anticipate d/c home in am Subjective Interval history since last seen: The pt is seen after their recent lap carroll. The case is reviewed with the patient; findings and the procedure/surgery were reviewed with the patient and family. The Patient's condition has been reviewed with the RN. Vitals have all been stable. The pt is tolerating ice chips and doesn't c/o nausea. pt is c/o diffuse abdominal and back pain. No shoulder pain. No n/v. She did not have a díaz. She denies CP or SOB. Exam Narrative Exam Narrative: PHYSICAL EXAM GENERAL APPEARANCE: Alert, healthy appearance, oriented, in no acute distress SKIN: No rashes. HYDRATION: Well hydrated HEAD, EYES, EARS, NECK, AND THROAT: Head is normocephalic, pupils equal, round, reactive to light and accommodation, ocular movement intact, sclera clear and no jaundice or redness. Dentition intact. No eye pain. No thrush NECK: no sore throat. LUNGS: normal respiration, clear to auscultation Normal chest wall movement. No chest wall pain. HEART: Regular rate and rhythm. NSR and no ST or T waves changes. EXTREMITY: No edema or cyanosis ABDOMEN: dressings are clean dry and intact. appropriate pain at surgical site. + bowel sounds NEURO: no focal neuro deficits. Objective Objective Clinical Data: Vital Signs Temperature 36.6 C 06/09/19 16:08 Temperature Source Tympanic 06/09/19 11:01 Pulse 49 L 06/09/19 16:08 Pulse Rhythm Regular 06/09/19 08:36 Respiratory Rate 14 06/09/19 16:08 Respiratory Effort Non-Labored 06/09/19 08:36 Respiratory Depth Normal 06/09/19 08:36 Respiratory Pattern Normal 06/09/19 08:36 Blood Pressure 115/78 06/09/19 16:08 Blood Pressure Position Sitting 06/07/19 19:41 Pulse Oximetry 100 06/09/19 16:08 Respiratory End-tidal CO2 34 06/09/19 16:08 Oxygen Delivery Method Room Air 06/09/19 16:08 Oxygen Flow Rate 0 06/09/19 11:01 Pain Level 5 06/09/19 15:15 Comment 06/07/19 19:41 Intake & Output 06/08/19 06/09/19 06/09/19 23:59 11:59 23:59 Intake Total 421.667 / 0060.406 2549.667 / 3736.667 1650 / 3736.667 Output Total 100 / 100 Balance 421.667 / 7134.494 4217.667 / 3636.667 1550 / 3636.667 Intake: IV 301.667 / 1610.344 5134.667 / 3736.667 1650 / 3736.667 Oral 120 / 120 Output: Estimated Blood Loss 100 / 100 Other: Urine Color Yellow Urine Appearance Clear Clear Urine Odor Normal Comment pt voids independently in toilet Pt voiding ad alphonse in toilet; removed hat, no measurement. Pt denies sx. Emesis Description None Voiding Methods Toilet Toilet Laboratory Results WBC 5.14 k/cumm (4.4-10.8) 06/08/19 06:40 RBC 4.43 m/cumm (4.00-5.20) 06/08/19 06:40 Hgb 12.5 g/dL (12.0-15.5) 06/08/19 06:40 Hct 38.4 % (36.0-46.0) 06/08/19 06:40 MCV 86.7 fL (80-95) 06/08/19 06:40 MCH 28.2 pg (27.0-33.0) 06/08/19 06:40 MCHC 32.6 g/dL (32.0-36.0) 06/08/19 06:40 RDW 12.4 % (11.7-14.6) 06/08/19 06:40 Plt Count 244 x1000/uL (130-400) 06/08/19 06:40 MPV 10.4 fL (8.0-11.0) 06/08/19 06:40 Immature Gran % 0.2 06/08/19 06:40 67.8 06/08/19 06:40 24.1 06/08/19 06:40 5.8 06/08/19 06:40 1.9 06/08/19 06:40 0.2 06/08/19 06:40 Absolute Neutrophils 3.48 k/cumm (1.2-6.7) 06/08/19 06:40 Absolute Lymphocytes 1.24 k/cumm (1.2-3.4) 06/08/19 06:40 Absolute Monocytes 0.30 k/cumm (0.11-0.7) 06/08/19 06:40 Absolute Eosinophils 0.10 k/cumm (0.0-0.7) 06/08/19 06:40 Absolute Basophils 0.01 k/cumm (0.0-0.2) 06/08/19 06:40 Sodium 143 mmol/L (136-145) 06/08/19 06:40 Potassium 3.9 mmol/L (3.5-5.1) 06/08/19 06:40 Chloride 108 mmol/L (98-107) H 06/08/19 06:40 Carbon Dioxide 27.2 mmol/L (21.0-32.0) 06/08/19 06:40 7.8 mmol/L (3-11) 06/08/19 06:40 BUN 8 mg/dL (7-18) 06/08/19 06:40 0.91 mg/dL (0.55-1.02) 06/08/19 06:40 >= 60.00 (mL/min/1.73m2) 06/08/19 06:40 Glucose 89 mg/dL (70-100) 06/08/19 06:40 Calcium 7.9 mg/dL (8.5-10.1) L 06/08/19 06:40 0.6 mg/dL (0.2-1.0) 06/08/19 06:40 AST 38 U/L (15-37) H 06/08/19 06:40 ALT 43 U/L (14-59) 06/08/19 06:40 73 U/L (46-116) 06/08/19 06:40 6.2 g/dL (6.4-8.2) L 06/08/19 06:40 3.2 g/dL (3.4-5.0) L 06/08/19 06:40 Amylase 28 U/L (25-115) 06/08/19 06:40 54 U/L (73-393) L 06/08/19 06:40 Yellow (Yellow) 06/07/19 21:09 Sl cloudy (Clear) 06/07/19 21:09 8.5 (5-8) H 06/07/19 21:09 Ur Specific [place] 1.010 (1.005-1.025) 06/07/19 21:09 Negative mg/dL (Negative) 06/07/19 21:09 Negative mg/dL (Negative) 06/07/19 21:09 Moderate (Negative) H 06/07/19 21:09 Negative (Negative) 06/07/19 21:09 Negative (Negative) 06/07/19 21:09 1.0 EU/dL (Up TO 0.2) H 06/07/19 21:09 Ur Leukocyte Esterase Negative (Negative) 06/07/19 21:09 3-5 (0-2) H 06/07/19 21:09 0-2 HPF (0-5) 06/07/19 21:09 Ur Epithelial Cells Many HPF (Negative) 06/07/19 21:09 Many amorphous HPF (Negative) 06/07/19 21:09 Rare HPF (Negative) 06/07/19 21:09 Negative LPF (Negative) 06/07/19 21:09 Negative (Negative) 06/07/19 21:09 Ur Culture Indicated? No 06/07/19 21:09 Negative mg/dL (Negative) 06/07/19 21:09
[2019-06-09] MEDS: Ketorolac 30 MG/ML VIAL IVP ×2 (16:53→21:22)
[2019-06-09] MEDS: traMADol 50 MG TAB PO (17:25)
[2019-06-10] MEDS: traMADol 50 MG TAB PO ×2 (01:50→07:06)
[2019-06-10] MEDS: Lactated Ringers 1,000 ML 125 ML IV (03:20)
[2019-06-10] MEDS: Ketorolac 30 MG/ML VIAL IVP ×2 (04:36→11:05)
[2019-06-10] MEDS: PIPERACILLIN/TAZO 4.5 GM in Normal Saline 100 ML IVPB (06:20)
[2019-06-10 07:32] LABS: Abs Immature Grans 0.02 k/cumm (0.0-0.09); Absolute Basophil Count 0.01 k/cumm (0.0-0.2); Absolute Lymphocyte Count 1.45 k/cumm (1.2-3.4); Absolute Monocyte Count 0.54 k/cumm (0.11-0.7); Absolute Neutrophil Count 7.69 k/cumm (1.2-6.7); Basophils % 0.1; HCT 38.1 % (36.0-46.0); HGB 12.5 g/dL (12.0-15.5); Immature Grans % 0.2; Lymphocytes % 14.9; Mean Corp. HGB Concentration 32.8 g/dL (32.0-36.0); Mean Corpuscular Hemoglobin 28.6 pg (27.0-33.0); Mean Corpuscular Volume 87.2 fL (80-95); Monocytes % 5.6; Neutrophils % 79.2; Platelet Count 269 x1000/uL (130-400); RBC 4.37 m/cumm (4.00-5.20); RBC Distribution Width 12.4 % (11.7-14.6); White Blood Cell Count 9.71 k/cumm (4.4-10.8)
[2019-06-10 07:40] VITALS: BP 126/87; PULSE 61; RESP 18; TEMP 37.1; O2SAT 99
[2019-06-10 07:47] LABS: ALT 69 U/L (14-59); AST 52 U/L (15-37); Albumin 3.2 g/dL (3.4-5.0); Alkaline Phosphatase 70 U/L (46-116); Anion Gap 9.5 mmol/L (3-11); BUN 8 mg/dL (7-18); Bilirubin, Total 0.5 mg/dL (0.2-1.0); CO2 24.5 mmol/L (21.0-32.0); CREATININE 0.91 mg/dL (0.55-1.02); Calcium 8.2 mg/dL (8.5-10.1); Chloride 105 mmol/L (98-107); Glucose 83 mg/dL (70-100); Potassium 3.9 mmol/L (3.5-5.1); Sodium 139 mmol/L (136-145); Total Protein 6.2 g/dL (6.4-8.2)
[2019-06-10] MEDS: Normal Saline Flush 10 ML SYR IVP ×3 (08:23→11:41)
[2019-06-10] MEDS: ACETAMINOPHEN 1,000 MG/100 ML BTL 400 MG IVPB (08:23)
--- NOTE | 2019-06-10 08:50 | PGE_ITS ---
Documented by User: GABRIELA Ac 06/10/19 08:54 Date of Service Date of service: 06/10/19 Time of Service: 08:50 Assessment and Plan (1) Acute cholecystitis due to biliary calculus: Current visit: No Status: Acute POD #1- s/p lap carroll for acute carroll w/ stones Advance to post op diet this morning Antibiotics: zosyn GI prophylaxis: pt was on pepcid. no hx of GI issues. should be able to tolerate po's tonight Constipation prophylaxis: will start on miralx or mom in am after GETA (-) BM, (+) Flatus. She reports shoulder discomfort encouraged use of a heating pad to reduce her discomfort. Disposition- D/C home later today if tolerating soft diet. Subjective Interval history since last seen: Patient reports she is feeling better today, but sore and my shoulder's are hurt. I have been up moving around. She tolerated clear liquids last night. (+) Flatus Exam Const General: cooperative, healthy appearing and comfortable Orientation: alert and oriented x3 Resp Effort & Inspection: normal respiratory effort, no audible wheezes and no cough GI Inspection: normal to inspection and distended Palpation: soft, no guarding and tender in the RUQ Auscultation: hypoactive bowel sounds Objective Objective Clinical Data: Abnormal lab results 06/10/19 06/10/19 Range/Units 06:38 06:38 Absolute Neutrophils 7.69 H (1.2-6.7) k/cumm Calcium 8.2 L (8.5-10.1) mg/dL AST 52 H (15-37) U/L ALT 69 H (14-59) U/L Total Protein 6.2 L (6.4-8.2) g/dL Albumin 3.2 L (3.4-5.0) g/dL Vital Signs Temperature 37.1 C 06/10/19 07:40 Temperature Source Tympanic 06/10/19 07:40 Pulse 61 06/10/19 07:40 Pulse Rhythm Regular 06/10/19 08:40 Respiratory Rate 18 06/10/19 07:40 Respiratory Effort Non-Labored 06/10/19 08:40 Respiratory Depth Normal 06/10/19 08:40 Respiratory Pattern Normal 06/10/19 08:40 Blood Pressure 126/87 06/10/19 07:40 Blood Pressure Position Sitting 06/07/19 19:41 Pulse Oximetry 99 06/10/19 07:40 Respiratory End-tidal CO2 34 06/09/19 16:08 Oxygen Delivery Method Room Air 06/10/19 07:40 Oxygen Flow Rate 0 06/10/19 07:40 Pain Level 1 06/10/19 07:40 Comment 06/07/19 19:41 Intake & Output 06/09/19 06/10/19 06/10/19 18:59 06:59 18:59 Intake Total 2585 / 4507.917 1922.917 / 4507.917 Output Total 100 / 100 Balance 2485 / 4407.917 1922.917 / 4407.917 Intake: IV 2585 / 4507.917 1922.917 / 4507.917 Output: Estimated Blood Loss 100 / 100 Other: Urine Color Yellow Yellow Urine Appearance Clear Clear Urine Odor Normal Comment Pt voiding ad alphonse in toilet; removed hat, no measurement. Pt denies sx. Emesis Description None Voiding Methods Toilet Toilet Laboratory Results WBC 9.71 k/cumm (4.4-10.8) 06/10/19 06:38 RBC 4.37 m/cumm (4.00-5.20) 06/10/19 06:38 Hgb 12.5 g/dL (12.0-15.5) 06/10/19 06:38 Hct 38.1 % (36.0-46.0) 06/10/19 06:38 MCV 87.2 fL (80-95) 06/10/19 06:38 MCH 28.6 pg (27.0-33.0) 06/10/19 06:38 MCHC 32.8 g/dL (32.0-36.0) 06/10/19 06:38 RDW 12.4 % (11.7-14.6) 06/10/19 06:38 Plt Count 269 x1000/uL (130-400) 06/10/19 06:38 MPV 11.0 fL (8.0-11.0) 06/10/19 06:38 Immature Gran % 0.2 06/10/19 06:38 79.2 06/10/19 06:38 14.9 06/10/19 06:38 5.6 06/10/19 06:38 0.0 06/10/19 06:38 0.1 06/10/19 06:38 Absolute Neutrophils 7.69 k/cumm (1.2-6.7) H 06/10/19 06:38 Absolute Lymphocytes 1.45 k/cumm (1.2-3.4) 06/10/19 06:38 Absolute Monocytes 0.54 k/cumm (0.11-0.7) 06/10/19 06:38 Absolute Eosinophils 0.00 k/cumm (0.0-0.7) 06/10/19 06:38 Absolute Basophils 0.01 k/cumm (0.0-0.2) 06/10/19 06:38 Sodium 139 mmol/L (136-145) 06/10/19 06:38 Potassium 3.9 mmol/L (3.5-5.1) 06/10/19 06:38 Chloride 105 mmol/L (98-107) 06/10/19 06:38 Carbon Dioxide 24.5 mmol/L (21.0-32.0) 06/10/19 06:38 9.5 mmol/L (3-11) 06/10/19 06:38 BUN 8 mg/dL (7-18) 06/10/19 06:38 0.91 mg/dL (0.55-1.02) 06/10/19 06:38 >= 60.00 (mL/min/1.73m2) 06/10/19 06:38 Glucose 83 mg/dL (70-100) 06/10/19 06:38 Calcium 8.2 mg/dL (8.5-10.1) L 06/10/19 06:38 0.5 mg/dL (0.2-1.0) 06/10/19 06:38 AST 52 U/L (15-37) H 06/10/19 06:38 ALT 69 U/L (14-59) H 06/10/19 06:38 70 U/L (46-116) 06/10/19 06:38 6.2 g/dL (6.4-8.2) L 06/10/19 06:38 3.2 g/dL (3.4-5.0) L 06/10/19 06:38 Amylase 28 U/L (25-115) 06/08/19 06:40 54 U/L (73-393) L 06/08/19 06:40 Yellow (Yellow) 06/07/19 21:09 Sl cloudy (Clear) 06/07/19 21:09 8.5 (5-8) H 06/07/19 21:09 Ur Specific [place] 1.010 (1.005-1.025) 06/07/19 21:09 Negative mg/dL (Negative) 06/07/19 21:09 Negative mg/dL (Negative) 06/07/19 21:09 Moderate (Negative) H 06/07/19 21:09 Negative (Negative) 06/07/19 21:09 Negative (Negative) 06/07/19 21:09 1.0 EU/dL (Up TO 0.2) H 06/07/19 21:09 Ur Leukocyte Esterase Negative (Negative) 06/07/19 21:09 3-5 (0-2) H 06/07/19 21:09 0-2 HPF (0-5) 06/07/19 21:09 Ur Epithelial Cells Many HPF (Negative) 06/07/19 21:09 Many amorphous HPF (Negative) 06/07/19 21:09 Rare HPF (Negative) 06/07/19 21:09 Negative LPF (Negative) 06/07/19 21:09 Negative (Negative) 06/07/19 21:09 Ur Culture Indicated? No 06/07/19 21:09 Negative mg/dL (Negative) 06/07/19 21:09 Documented by User: Angelika Grover DO 06/14/19 13:06 Assessment and Plan (1) Acute cholecystitis due to biliary calculus: Current visit: No Status: Acute pt seen and examined, agree w/ above. Doing better today. will be d/c'ed home- see orders does not require further abx F/u in clinic next week problems= return to ED.
--- NOTE | 2019-06-10 11:32 | PDOC.DSDIS_ITS ---
Discharge Plan Disposition Patient Disposition: HOME Condition: Stable Discharge Details Chief Complaint: Abd Prob Clinical Impression: Acute cholecystitis due to biliary calculus Reason For Visit: ACUTE CHOLECYSITIS AND CHOLELITHIASIS Admit Date/Time: 06/07/19 21:25 Admit Provider: Angelika Grover Attending Provider: Angelika Grover Primary Care Provider: Radha Leigh ED Provider: Farida Cespedes Hospital Course Hospital Course: pt admitted w/ acute cholecysitis. Pt underwent uneventful lap carroll. pt id doing well postOp and will be d/c home today. Home Meds and New Rx's Prescriptions: New oxycodone 5 mg tablet, oral only 5 mg PO Q6H PRN (Reason: pain) Qty: 10 RF: 0 ibuprofen [IBU-200] 200 mg tablet 600 mg PO Q6H PRN (Reason: pain) Qty: 90 RF: 2 Discharge Instructions Additional Instructions: Care after Gallbladder Surgery -You should walk frequently, gradually, increasing the distance. You may climb stairs, just go slowly. -You can take Advil 800mg 3 times a day with food for the first week for pain; you may take your prescription medication as prescribed-in addition to the Advil. Discontinue Advil if it hurts your stomach. Do not take Advil if you are intolerant to aspirin products or have stomach problems. ? Use an ice bag for the first 72 hours. This helps to decrease swelling, which causes pain. It is normal to be more sore/painful and swollen towards the end of the day and first thing in the morning. ? Gallbladder surgery can make you very nauseated; use zofran for nausea, for the first 24 hours. The nausea generally stops after 24 hours. ? Use milk of magnesia or prune juice to prevent constipation (this is a particular side effect of pain medication). Do not allow yourself to become constipated. ? Avoid fatty or greasy foods; introduce these slowly, with care, after about 1 month. Follow the low-fat diet sheet that will be given to you at the office or hospital. ? Start out eating very small, bland amounts of food. Do not take pain pills on an empty stomach. ? Do not go swimming or sit in a hot tube for two weeks. ? Replace the band-aids with clean, dry ones or leave them off. ? There are no stitches to remove. ? Do not drive your car for one week and then only if you have no pain and can move freely. Do not drive if you are taking pain narcotic pain medications. ? You may resume sexual activity whenever pain and soreness subside in 2 weeks. ? Do no lift anything over 5 lbs for the first 10 days. Minimize strenuous activity for the next two weeks. ? You may return to work in one week, or when you feel able ? You should return to Dr. Grover?s office for a post-op appointment about one week after surgery. Please call the Surgical Clinic at if one was not made for you at the [facility]. to schedule an appointment: [phone] My Medications for pain and nausea are: ibuprofen and ultram and zofran When to Call the Office: ? If the incision becomes red or swollen, or there is more than a little drainage from it. ? If you develop a temperature higher than 100.5 F. ? If your eyes turn yellow ? Vomiting and can?t keep fluids down Stand Alone Forms: Nursing Discharge Form Referrals: Angelika Grover, DO [OSTEOPATHIC DOCTOR] - Activity:: no lifting anything heavier than the baby for 2 wks Equipment/Supplies:: No Equipment Needed Diet:: small bland/lowfat meals x 1 wk Discharge Orders Discharge Orders: Discharge Order (Routine); Ordered 06/10/19 Ordered By: Angelika Grover DS: Diagnosis Discharge Diagnosis (1) Acute cholecystitis due to biliary calculus: Status: Acute
[2019-06-10] MEDS: Milk of Magnesia 30 ML CUP PO (11:41)
--- NOTE | 2019-06-10 11:55 | PDOC.CMDIS ---
- If Service Date Differs Date of service: 06/10/19 Time of Service: 11:55 LACE Index Scoring Tool - Questions: Length of Stay (in days): 4 - 6 Acuity (Admit via E.D.?): Yes E.D. Visits: 3 - Answers: Total Score: 10 Risk of Readmission: High Risk Care Management Discharge Reason for Hospitalization: Acute cholecystitis due to biliary calculus Discharge Plan: Yenny will discharge home with no services. Follow up post op appointment. Patient/Family Education Needs: Review of discharge instructions including discussion of self care needs upon discharge and Ask Me Three.
--- NOTE | 2019-06-15 13:29 | DSE_ITS ---
DATE OF ADMISSION: June 07, 2019 DATE OF DISCHARGE: June 10, 2019 PREOPERATIVE DIAGNOSIS: Aqbdk-ak-opivmop cholecystitis, cholelithiasis. POSTOPERATIVE DIAGNOSIS: Same. PROCEDURE: Laparoscopic cholecystectomy. ADMITTING PROVIDER/SURGEON: Angelika Grover D.O. COMPLICATIONS: No complications or somatic dysfunctions. CONDITION: The patient tolerated the procedure well without complication. HISTORY: Ms. Benitez is a 33-year-old female who was admitted through the Emergency Department on 06/07/19 with intractable nausea, vomiting and pain. She had no fever and no white count and LFT's were nl. She had CT findings compatiblity w/ acute carroll and no CBD involvement. She was admitted for IV pain management, hydration and antibiotic therapy. On June 08 she had no fever and no white count, no pain and was tolerating clear liquids. She had a CT scan and lab work done. Please see [facility] for the results of these procedures. The OR schedule could not accommodate surgery on the and the patient was clinically stable, and she agreed to wait until 06/09. . She underwent a laparoscopic cholecystectomy on 06/09/19. This was uneventful and she tolerated the procedure well. Please see the Operative Report in the Chart. She was discharged to home on 06/10/19. She did not require any further antibiotics. She was given prescriptions for ibuprofen and narcotic pain medication. Please see the Chart. She was given instructions in wound care, activity and warning signs. Please see instructions in the Chart. She was given a date for a follow-up appointment with me in the clinic. The patient verbalized understanding of her postop instructions and was discharged home in stable and satisfactory condition. cc: Radha Leigh N.P.
== END 2019-06-10 13:00 | disposition home or self-care (01) | DRG 419 ==
LOC: ER 21:49 → MS 22:05
PROVIDERS: Admitting Provider Surgery; Emergency Provider Physician Assistant; PCP Nurse Practitioner; Visit Provider Surgery
PROC: 0FT44ZZ Resection of Gallbladder, Percutaneous Endoscopic Approach (ICD-10-PCS; CPT 47562; principal; 2019-06-09 11:30)
DX: K81.2 Acute cholecystitis with chronic cholecystitis (principal); K42.9 Umbilical hernia without obstruction or gangrene
CPT/HCPCS: 47562; 36415; 80053; 83690; 96374; 96375; 99222; 99232; 99233; 99285; J1650; NC; 74177; 81003; 81015; 82150; 85025; 88304; 99284; J0131; J1100; J1885; J2270; J2405; J2543; J3010; J3490

== ENCOUNTER 2024-02-09 10:57 | Outpatient (REF) | payer BC, SELFPAY ==
--- NOTE | 2024-02-09 08:45 | PAPFT_PTH ---
PATIENT: Yenny Benitez LOC: [facility] U#:[id number] AGE/SX: 38/F ROOM: RE02/09/[address]: Sylvie Padilla : 1985 BED: DIS: 02/09/2024 SPEC #: [id number] RECD: 02/09/24 18:09 STATUS: SARINA RETamiko #: [id number] MISSY: 02/09/24 08:[address]: Sylvie Padilla [facility]PT[facility] Cytology RECD BY: Nina tSyles Tissues: 1 - CX/ENDOCX FOR PAP SMEARS Procedures: PAP THIN PREP/UVM Screening HPV DNA PROBE Comments: [id number]
== END 2024-02-09 10:58 | disposition home or self-care (01) ==
LOC: NCHCN 10:57
PROVIDERS: PCP Family Medicine; Visit Provider Family Medicine
DX: Z11.51 Encounter for screening for human papillomavirus (HPV); Z01.419 Encounter for gynecological examination (general) (routine) without abnormal findings
CPT/HCPCS: 88142; 87624

== ENCOUNTER 2025-02-11 21:13 | Outpatient (REF) | payer BC, SELFPAY ==
[2025-02-11 15:19] LABS: Abs Immature Grans 0.01 10^3/uL (0.0-0.06); Absolute Basophil Count 0.05 10^3/uL (0.0-0.2); Absolute Eosinophil Count 0.05 10^3/uL (0.0-0.7); Absolute Lymphocyte Count 1.64 10^3/uL (1.2-3.4); Absolute Monocyte Count 0.28 10^3/uL (0.1-0.8); Absolute Neutrophil Count 2.76 10^3/uL (1.2-6.7); HGB 13.2 g/dL (11.2-15.7); Immature Grans % 0.2 %; Lymphocytes % 34.2 %; MCH 29.5 pg (27.0-33.0); MCHC 33.8 % (32.0-36.0); MCV 87 fL (80-95); MPV 11.5 fL (8.0-11.0); Monocytes % 5.8 %; Neutrophils % 57.8 %; Platelet Count 273 10^3/uL (130-400); RBC 4.47 10^6/uL (3.93-5.22); RDW 11.5 % (11.7-14.6); WBC 4.79 10^3/uL (4.4-10.8)
[2025-02-11 15:38] LABS: ALT 13 U/L (14-59); AST 13 U/L (15-37); Albumin 3.9 g/dL (3.4-5.0); Alkaline Phosphatase 85 U/L (46-116); Anion Gap 7.4 mmol/L (3-11); BUN 12 mg/dL (7-18); Bilirubin, Total 0.5 mg/dL (0.2-1.0); CO2 28.6 mmol/L (21.0-32.0); CREATININE 0.7 mg/dL (0.55-1.02); Calcium 8.7 mg/dL (8.5-10.1); Calculated LDL 65 mg/dL (<100); Chloride 101 mmol/L (98-107); Cholesterol 132 mg/dL (<200); Estimated GFR 112.75 (mL/min/1.73m2); Glucose 81 mg/dL (74-106); HDL Cholesterol 58 mg/dL (>or=50); Potassium 3.9 mmol/L (3.5-5.1); Sodium 137 mmol/L (136-145); TSH (W/Ref FT4) 1.36 uIU/mL (0.36-3.74); Total Protein 7.1 g/dL (6.4-8.2); Triglyceride 49 mg/dL (<150)
== END 2025-02-11 21:14 | disposition home or self-care (01) ==
LOC: NCHCN 21:13
PROVIDERS: PCP Family Medicine; Visit Provider Family Medicine
DX: Z00.00 Encounter for general adult medical examination without abnormal findings (principal); R53.83 Other fatigue
CPT/HCPCS: 80053; 80061; 84443; 85025